=== PATIENT | male | born 1930 | race Caucasian/White ===

== ENCOUNTER 2017-08-22 06:36 | Inpatient (IN) | payer MEDICARE, OTHER ==
[2017-08-22] VITALS (20 sets, daily range): BP systolic 103–145; BP diastolic 57–88; PULSE 64–126; RESP 16–25; Ht 167.6 cm; Wt 81.8 kg
[~2017-08-22] VITALS: Ht 167.6 cm; Wt 81.8 kg
[~2017-08-22 06:36] MED LIST: ALBU8.5H3 INH; AMLO-147 PO; APIX5TAB PO; ASPI81TA16 PO; BEN25 PO; BUDE6HFA INHALATION; FURO20TA3 PO; GABA100C14 PO; LORA0.5T PO; METO-319 PO; OMEG1CAP2 PO; OMEP40CA6 PO; SIMV40TA2 PO; TAMS0.4C2 PO; THP300CCR PO; TIOT18CA INHALATION; ZOLP5TAB7 PO
[2017-08-22] MEDS ORDERED: METOPROLOL 5 MG INJ IV ONE (07:00)
[2017-08-22 07:05] LABS: BASOPHIL # 0.1 10^3/ul (0.0-0.1); BASOPHILS % 0.5 % (0.0-2.0); EOSINOPHILS % 0.3 % (0.0-7.0); HEMATOCRIT 45.5 % (42.0-52.0); HEMOGLOBIN 15.1 g/dl (14.0-18.0); LYMPHOCYTES # 1.3 10^3/ul (0.8-2.9); LYMPHOCYTES % 11.2 % (15.0-51.0); MEAN CORPUSCULAR HEMOGLOBIN 29.1 pg (29.0-33.0); MEAN CORPUSCULAR HGB CONC 33.2 g/dl (32.0-37.0); MEAN CORPUSCULAR VOLUME 87.7 fl (82.0-101.0); MEAN PLATELET VOLUME 10.3 fl (7.4-10.4); MONOCYTE # 0.6 10^3/ul (0.3-0.9); MONOCYTES % 4.8 % (0.0-11.0); NEUTROPHIL # 9.5 10^3/ul (1.6-7.5); NEUTROPHILS % 82.8 % (39.0-77.0); PLATELET COUNT 329 10^3/UL (140-415); RED BLOOD COUNT 5.19 10^6/ul (4.70-6.10); RED CELL DISTRIBUTION WIDTH 12.9 % (11.5-14.5); WHITE BLOOD COUNT 11.5 10^3/ul (4.8-10.8)
--- NOTE | 2017-08-22 07:16 | RADRPT ---
PROCEDURE: CT brain without contrast. CLINICAL INDICATION: Stroke. TECHNIQUE: CT scan of the brain was performed on a multi-detector high-resolution CT scanner. Co ntiguous axial images were obtained from the skull base to the vertex without intravenous contrast. Coronal and sagittal reformatted images were also obtained. Images were reviewed on the PACS works tation. One or more of the following dose reduction techniques were used: - Automated exposure control. - Adjustment of the mA and/or kV according to patient size. - Use of iterative reconstruction technique. Exam CTD/vol = 43.16 mGy. Total exam DLP = 810.25 mGy-cm. COMPARISON: None. FINDINGS: The ventricles and cortical sulci are prominent consistent with mild age related volume loss. There are patchy areas of low attenuation within the periventricular white matter consistent with mild ch ronic ischemic changes secondary to small vessel disease. There is no mass effect or midline shift. There is no intracranial hemorrhage or abnormal extra-axial collection. There are atherosclerotic calcifications within bilateral distal internal carotid arteries. There is a nodule within the left parietal scalp measuring 1.7 x 1.3 cm which could represent a seba ceous cyst. The calvarium is intact. There is no evidence of fracture. Visualized paranasal sinuse s and mastoid air cells are clear. IMPRESSION: No acute intracranial abnormality identified. Mild age related volume loss and chronic ischemic white matter disease. Cerebral atherosclerosis. A call report was made to Dr. Fuentes at 07:13 a.m. .Nael Torres MD, MD Date Time Electronically viewed and signed by .Nael Torres MD, MD on 08/22/2017 07:16 .T/
[2017-08-22 07:22] LABS: CALCIUM 9.3 mg/dl (8.4-10.2); CREATININE 1.22 mg/dl (0.61-1.24); POTASSIUM 3.9 mmol/L (3.5-5.1)
[2017-08-22] MEDS ORDERED: METOPROLOL (XL) 50 MG TAB PO ONE (07:30)
[2017-08-22 07:33] LABS: TROPONIN-I 0.097 ng/ml (0.00-0.12)
--- NOTE | 2017-08-22 08:14 | RADRPT ---
PROCEDURE: XR Chest. CLINICAL INDICATION: Stroke. TECHNIQUE: Single frontal chest x-ray. COMPARISON: 05/07/2016 FINDINGS: There is moderate central congestion. No focal opacification is seen. No pneumothorax or pleural e ffusion is seen. Mild aortic arch atherosclerotic calcifications are present. The heart size is pr ominent. Otherwise, the cardiomediastinal silhouette is unremarkable. Mild bilateral glenohumeral a rthrosis is present, left more than right. IMPRESSION: 1. Moderate central congestion. 2. Mild cardiomegaly and aortic atherosclerosis. RPTAT: JJ .Valentin Loza MD, MD Date Time Electronically viewed and signed by .Valentin Loza MD, on 08/22/2017 08:14 .A/
[2017-08-22] MEDS ORDERED: ONDANSETRON 4 MG INJ IV PRN (08:30)
--- NOTE | 2017-08-22 08:40 | ERA ---
ER Documentation Chief Complaint Date/Time DATE: 08/22/17 TIME: 08:31 Chief Complaint CAME IN VIA EMS DUE TO CHEST PAIN HPI 86-year-old male with a history of atrial fibrillation, CAD status post stent, and possible recent stroke about 2 months ago on Eliquis presenting with ambulance with complaints of chest pain. He states the pain started around 1 AM. It radiates to his left arm and neck. He describes as a pressure-like pain. He denies any associated nausea, vomiting, or diaphoresis but he did look very pale and was dizzy per his daughter. The pain has been constant since 1 AM. When his daughter arrived to his house, she noticed that he had some slurred speech which is new for him. He also complains of subjective left arm heaviness. It is unclear what time his slurred speech started as the patient has not noticed it. ROS All systems reviewed and are negative except as per history of present illness. Medications Home Meds Active Scripts Furosemide* (Furosemide*) 20 Mg Tablet, 20 MG PO DAILY for 30 Days, #60 TAB Prov:LEONEL FOWLER MD 05/07/16 Apixaban* (Eliquis*) 5 Mg Tablet, 5 MG PO BID for 30 Days, TAB Prov:LEONEL FOWLER MD 05/07/16 Reported Medications Budesonide-Formoterol Fumarate* (Symbicort*) 160-4.5 Hfa.aer.ad, 2 PUFF INHALATION BID, #1 EACH 05/02/16 Albuterol Sulfate* (Proair HFA*) 8.5 Gm Hfa.aer.ad, 2 PUFF INH Q6H Y for WHEEZING AND SOB, #1 INHALER 05/02/16 Zolpidem Tartrate* (Zolpidem Tartrate*) 5 Mg Tablet, 5 MG PO QHS Y for INSOMNIA , #30 TAB 05/02/16 Theophylline Anhydrous* (Naif-24*) 300 Mg Cap.sr.24h, 300 MG PO DAILY, CAP 05/02/16 Tamsulosin Hcl* (Tamsulosin Hcl*) 0.4 Mg Cap.er.24h, 0.4 MG PO HS, CAP 05/02/16 Tiotropium [place]* (Spiriva*) 18 Mcg Cap.w.dev, 1 CAP INHALATION DAILY, #30 CAP 6/4/16 Simvastatin* (Zocor*) 40 Mg Tablet, 40 MG PO QHS, #30 TAB 05/02/16 Omeprazole* (Omeprazole*) 40 Mg Capsule.dr, 40 MG PO DAILY, #30 CAP 05/02/16 Metoprolol Succinate* (Toprol XL*) 50 Mg Tab.er.24h, 50 MG PO DAILY, #30 TAB 05/02/16 [place]-3 Acid Ethyl Esters (Lovaza) 1 Gm Capsule, 1 GM PO QID, CAP 05/02/16 Lorazepam* (Lorazepam*) 0.5 Mg Tablet, 0.5 MG PO DAILY Y for ANXIETY, TAB 05/02/16 Gabapentin* (Gabapentin*) 100 Mg Capsule, 100 MG PO DAILY, #90 CAP 05/02/16 Diphenhydramine Hcl* (Benadryl*) 25 Mg Cap, 25 MG PO DAILY Y for ALLERGIC REACTION, CAP 05/02/16 Amlodipine Besylate* (Amlodipine Besylate*) 10 Mg Tablet, 10 MG PO DAILY, #30 TAB 05/02/16 Aspirin (LOW DOSE ASPIRIN EC) 81 Mg Tablet.dr, 81 MG PO DAILY, #30 TAB 05/02/16 Allergies Allergies: Coded Allergies: Penicillins (Verified Allergy, Unknown, hives, 05/02/16) acetaminophen (Verified Allergy, Unknown, 05/02/16) hives, swelling clopidogrel (Verified Allergy, Unknown, 05/02/16) Uncoded Allergies: FLU SHOT (Allergy, Unknown, 05/02/16) hives PMhx/Soc History of Surgery: No Hx Neurological Disorder: No Hx Respiratory Disorders: No Hx Psychiatric Problems: No Hx Miscellaneous Medical Probl: Yes (CAD, stent, atrial fibrillation) Hx Alcohol Use: No Hx Substance Use: No Hx Tobacco Use: No Smoking Status: Former smoker FmHx Family History: No diabetes Physical Exam Vitals Vital Signs Date Time Temp Pulse Resp B/P Pulse Ox O2 Delivery O2 Flow Rate FiO2 08/22/17 07:28 105 18 111/81 95 Room Air 08/22/17 06:45 Nasal Cannula 2 08/22/17 06:39 98.2 112 18 147/119 98 Physical Exam Const: Well-nourished, no significant distress, no diaphoresis, nontoxic Head: Atraumatic Eyes: Normal Conjunctiva ENT: Normal External Ears, Nose and Mouth. Neck: Full range of motion..~ No meningismus. No JVD Resp: Clear to auscultation bilaterally Cardio: Tachycardic, irregular rhythm, no murmurs. 2+ distal pulses, equal bilaterally Abd: Soft, non tender, non distended. Normal bowel sounds Skin: No petechiae or rashes Back: No midline or flank tenderness Ext: No cyanosis, or edema Neur: Awake and alert, somewhat slurred speech, cranial nerves intact, strength and sensations intact in all 4 extremities. Psych: Normal Mood and Affect Result Diagram: 08/22/1765408/22/17654 Results 24 hrs Laboratory Tests Test 08/22/17 06:55 08/22/17 07:18 White Blood Count 11.510^3/ul Red Blood Count 5.1910^6/ul Hemoglobin 15.1g/dl Hematocrit 45.5% Mean Corpuscular Volume 87.7fl Mean Corpuscular Hemoglobin 29.1pg Mean Corpuscular Hemoglobin Concent 33.2g/dl Red Cell Distribution Width 12.9% Platelet Count 78761^3/UL Mean Platelet Volume 10.3fl Neutrophils % 82.8% Lymphocytes % 11.2% Monocytes % 4.8% Eosinophils % 0.3% Basophils % 0.5% Nucleated Red Blood Cells % 0.0/100WBC Neutrophils # 9.510^3/ul Lymphocytes # 1.310^3/ul Monocytes # 0.610^3/ul Eosinophils # 0.010^3/ul Basophils # 0.110^3/ul Nucleated Red Blood Cells # 0.010^3/ul Sodium Level 141mmol/L Potassium Level 3.9mmol/L Chloride Level 107mmol/L Carbon Dioxide Level 25mmol/L Anion Gap 13 Blood Urea Nitrogen 18mg/dl Creatinine 1.22mg/dl Glucose Level 166mg/dl Calcium Level 9.3mg/dl Troponin I 0.097ng/ml Bedside Glucose 145mg/dL Current Medications Medications (Trade) Dose Ordered Sig/Katy Route PRN Reason Start Time Stop Time Status Last Admin Dose Admin Metoprolol Tartrate (Lopressor) 5 mg ONCE ONCE IV 08/22/17 07:00 08/22/17 07:01 DC 08/22/17 07:16 Metoprolol Succinate (Toprol Xl) 50 mg ONCE ONCE PO 08/22/17 07:30 08/22/17 07:31 DC 08/22/17 08:02 Ondansetron HCl (Zofran Inj) 4 mg ER BRIDGE PRN IV NAUSEA AND/OR VOMITING 08/22/17 08:30 08/23/17 08:29 Procedures/MDM EMERGENT LABS AND DIAGNOSTIC STUDIES: Lab Results above were reviewed and interpreted by me. CBC: Mild leukocytosis CMP: No evidence of electrolyte abnormality, renal failure, hypoglycemia, liver failure, or biliary obstruction Troponin within normal limits UA: Pending 12-lead EKG #1 was interpreted by Yaritza Fuentes MD: Atrial fibrillation with RVR at 146 beats per minute Normal axis Normal intervals Minimal ST depressions in V4 through V6, no STEMI 12-lead EKG #2 was interpreted by Yaritza Fuentes MD: Atrial fibrillation with RVR at 112 beats per minute Normal axis Normal intervals ST depressions resolved, no STEMI Radiology Results as interpreted by Radiology below were reviewed by Lalit Fuentes MD: Chest x-ray: IMPRESSION: 1. Moderate central congestion. 2. Mild cardiomegaly and aortic atherosclerosis. .Valentin Loza MD, MD Date Time Electronically viewed and signed by .Valentin Loza MD, MD on 08/22/2017 08:14 CT head shows no acute abnormalities MRI/MRA brain and neck pending Initial Nursing notes reviewed. Previous Medical Records requested via the Electronic Health Record. EMERGENCY DEPARTMENT COURSE / MEDICAL DECISION MAKING: Patient is presenting with A. fib with rapid ventricular response. His blood pressure is however stable. Code stroke was activated for slurred speech but time of onset is not known, so patient is not a TPA candidate. Patient's neurologic symptoms are concerning for acute TIA/stroke, infectious, or metabolic cause and will require inpatient workup and continuous monitoring. Further w/u for will be deferred to the inpatient team. Spoke with the neurologist decoration checker and he recommended an MRI of the brain. He was given metoprolol 5 mg IV with improvement of his heart rate and his symptoms. Aspirin was given in the ambulance. However the patient's chest pain is concerning for a cardiac etiology and will require further workup. His initial troponin is not elevated and his repeat EKG does not show any ST changes. Patient will be admitted to telemetry for further evaluation. Sp Critical Care Time: 35 minutes Treatments/Evaluations: Close monitoring and treatment of unstable vital signs, cardiorespiratory, and neurologic status, while maintaining tight balance of fluid, respiratory, and cardiac interventions. This time includes discussing the case with the patient and the patients family. This time does not include all procedures stated elsewhere in this record. This time also includes reviewing old records, labs and radiological studies. This time includes examining and re-examining the patient. Additionally, this time also includes arranging care with admitting and consulting physicians. TPA Criteria Assessment: Patient is not a TPA candidate because: Last known normal > 3 hours Time Onset Unkown Accepting Care Team: Current data and ongoing care discussed. Time: Time of admission Primary Provider: Jayden Consulting: Teleneurologist Dr. Guadarrama Outstanding Data: MRI/MRA Brain Departure Diagnosis: Primary Impression: Atrial fibrillation with RVR Additional Impressions: Chest pain Qualified Code: R07.9 - Chest pain, unspecified type Slurred speech Condition: Serious GISELA FUENTES MD Aug 22, 2017 08:40
[2017-08-22] MEDS ORDERED: MIDAZOLAM 1 MG/ML 2 ML INJ ONE (08:48)
[2017-08-22] MEDS ORDERED: MIDAZOLAM 1 MG/ML 2 ML INJ IV ONE (09:00)
--- NOTE | 2017-08-22 10:56 | RADRPT ---
PROCEDURE: MR cerebral angiogram without intravenous contrast CLINICAL INDICATION: Slurred speech. Stroke. COMPARISON: CT from 08/22/2017. TECHNIQUE: MR angiogram of the head using 3D [id number]. Multiplanar reconstructions were obtai fran. FINDINGS: Limitations: Motion degrades image quality. Carotid arteries: No flow-limiting stenosis. Anterior cerebral arteries: No flow-limiting stenosis. Middle cerebral arteries: No flow-limiting stenosis. Posterior cerebral arteries: No flow-limiting stenosis. Anterior communicating artery: No flow-limiting stenosis. Posterior communicating arteries: Diminutive are absent.. Basilar artery: No flow-limiting stenosis. Vertebral arteries: No flow-limiting stenosis. IMPRESSION: Motion degrades examination without gross flow-limiting stenosis. RPTAT: PP Physician Ronaldo Date Time Electronically viewed and signed by Physician Ronaldo on 08/22/2017 10:55 LG/
--- NOTE | 2017-08-22 10:58 | RADRPT ---
PROCEDURE: MR Brain without intravenous contrast CLINICAL INDICATION: Slurred speech. Stroke COMPARISON: CT from 08/22/2017. TECHNIQUE: Multiplanar multi-sequence images of the brain were obtained. Images acquired on a 3.0 T esla magnet. FINDINGS: Parenchyma: No acute hemorrhage, infarction, or mass. Moderate amount of periventricular and subcort ical white matter FLAIR hyperintensity, a nonspecific finding often associated with chronic microang iopathy. Ventricles: Mild generalized volume with proportionate ex vacuo ventricular dilation. . Extra-axial spaces: No herniation or midline shift. Orbits: Bilateral lens replacements. Major intracranial flow voids: Preserved. Paranasal sinuses: Mild paranasal sinus mucosal thickening. Mastoids and middle ears: Clear. Bones: Normal. Extracranial soft tissues: 17 x 12 mm subdural rounded well circumscribed lesion in the left subocci pital scalp which may represent an epidermal pilonidal inclusion cyst. Additional comment: None. IMPRESSION: 1. No acute hemorrhage or infarction. 2. Chronic senescent findings characterized by volume loss and white matter changes. RPTAT: PP Physician Ronaldo Date Time Electronically viewed and signed by Physician Ronaldo on 08/22/2017 10:58 LG/
--- NOTE | 2017-08-22 11:02 | RADRPT ---
PROCEDURE: MR neck angiogram without contrast CLINICAL INDICATION: Slurred speech. Stroke. COMPARISON: None relevant listed. TECHNIQUE: Multiplanar multi-sequence angiogram of the neck was performed using 2-D time of flight technique. The extracranial arterial circulation was evaluated using a time resolved 3-D time of fli ght technique. Source images, maximum intensity projections, and sub-volume maximum intensity projec tion images were all reviewed. All stenosis measurements were made using NASCET methodology. FINDINGS: Visualized aorta and the great vessel origins: No flow-limiting stenosis. Right common carotid artery: No flow-limiting stenosis. Right internal carotid artery: Mild 25-30% narrowing of the internal carotid artery at its origin. Right external carotid artery: No flow-limiting stenosis. Left common carotid artery: No flow-limiting stenosis. Left internal carotid artery: Mild 25-30% narrowing of the internal carotid artery at its origin. Left external carotid artery: No flow-limiting stenosis. Vertebral arteries: The left vertebral artery arises directly from the aortic arch No flow-limiting stenosis. Vertebral artery dominance: Codominant. Visualized intracranial circulation: No flow-limiting stenosis. Additional comment: None. IMPRESSION: Mild 25-30% narrowing of the internal carotid arteries at their origins. RPTAT: PP Physician Ronaldo Date Time Electronically viewed and signed by Physician Ronaldo on 08/22/2017 11:02 /
[2017-08-22] MEDS ORDERED: LORAZEPAM 0.5 MG TAB PO PRN (11:30)
[2017-08-22] MEDS ORDERED: APIXABAN 5 MG TABLET PO SCH (11:30)
[2017-08-22] MEDS ORDERED: DIPHENHYDRAMINE 25 MG CAP PO PRN (11:30)
[2017-08-22] MEDS ORDERED: NACL 0.9% 3 ML SYG IV SCH (11:30)
[2017-08-22] MEDS: FUROSEMIDE 40 MG INJ IV SCH ×2 (11:31→16:51)
[2017-08-22] MEDS ORDERED: ALBUTEROL HFA 8 GM INHALER INH PRN (12:00)
[2017-08-22 13:25] LABS: INR 1.26; PROTIME 15.9 Sec (12.2-14.2); PT RATIO 1.2
[2017-08-22 13:26] LABS: PARTIAL THROMBOPLASTIN TIME 39.2 Sec (25.0-35.0)
[2017-08-22 13:48] LABS: CK-MB 7.26 ng/ml (0.0-2.4); TROPONIN-I 1.87 ng/ml (0.00-0.12)
--- NOTE | 2017-08-22 14:33 | HP ---
Date/Time of Note Date/Time of Note DATE: 08/22/17 TIME: 14:18 Assessment/Plan VTE Prophylaxis VTE Prophylaxis Intervention: other Lines/Catheters IV Catheter Type (from Nrs): Peripheral IV Assessment/Plan Chief Complaint/Hosp Course 86 yo male with h/o CAD remote stent, permanent A Fib on AC, BPH, OA, COPD who presents with A Fib and RVR and decompenstated acute diastolic CHF exacerbation Acute diastolic CHF exacerbation: - Diurese with IV lasix 40 BID to euvolemia NSTEMI: - Suspect this is type II in setting of RVR and CHF - Trend troponin - Continue aspirin and AC w NOAC A Fib w RVR: - Titrate metoprolol to control rate < 100 - Rate will improve as patient becomes euvolemic - Continue Xarelto for AC COPD: - Stable, continue home meds Hypertension: - Continue amlodipine Discharge when euvolemic Problems: HPI/ROS Admit Date/Time Admit Date/Time Aug 22, 2017 at 08:22 Hx of Present Illness 86 yo male with h/o permanent A Fib on AC, CAD BPH, OA b/l knees, COPD who presented today with SOB, palpitations accompanied by dizziness and headach this AM. ROS is hoffman positive, a bit difficult to ascertain exactly what brought him to ED, but clearly had a transient episode of SOB and palpitations thsi morning that seems to have resolved. In ED, found to be in A Fib w RVR, given IV and PO metoprolol. Seen by me after these events, feels well. No symptoms currently. Endorses chronic SOB and PND, has very bothersome deviated septum he focuses on. Also has a unilateral swollen testicle and RLE swelling. PMH/Family/Social Past Medical History Medical History: congestive heart failure Past Surgical History Past Surgical Hx: angioplasty Social History Alcohol Use: none Smoking Status: Former smoker Drug Use: none Exam/Review of Systems Vital Signs Vitals Vital Signs Date Time Temp Pulse Resp B/P Pulse Ox O2 Delivery O2 Flow Rate FiO2 08/22/17 12:10 126 08/22/17 08:52 21 123/82 95 Room Air 08/22/17 06:45 2 08/22/17 06:39 98.2 Exam Exam Comfortable, well appearing NAD, Aox3 Pleasant, approrpiate Irreg irreg, tachy, no murmur. +++ JVD Lungs are clear b/l Abdomen is soft nt nt Ext no pitting edema, R calf perhaps a bit more swollen than left Labs Result Diagram: 08/22/1765408/22/17654 Medications Medications Current Medications Albuterol (Ventolin Hfa) 2 puff Q6H PRN INH WHEEZING AND SOB; Start 08/22/17 at 12:00 Amlodipine Besylate (Norvasc) 10 mg DAILY PO ; Start 08/23/17 at 09:00 Apixaban (Eliquis) 5 mg BID PO Last administered on 08/22/17t 11:31; Admin Dose 5 MG; Start 08/22/17 at 11:30 Aspirin (Halfprin) 81 mg DAILY PO ; Start 08/23/17 at 09:00 Diphenhydramine HCl (Benadryl) 25 mg DAILY PRN PO ALLERGIC REACTION; Start at 11:30 Gabapentin (Neurontin) 100 mg DAILY PO ; Start 08/23/17 at 09:00 Lorazepam (Ativan) 0.5 mg DAILY PRN PO ANXIETY; Start 08/22/17 at 11:30 Metoprolol Succinate (Toprol Xl) 50 mg DAILY PO ; Start 08/23/17 at 09:00 Tamsulosin HCl (Flomax) 0.4 mg HS PO ; Start 08/22/17 at 21:00 Zolpidem Tartrate (Ambien) 5 mg QHS PRN PO INSOMNIA; Start 08/22/17 at 11:30 KAE WILSON MD Aug 22, 2017 14:32
[2017-08-22] MEDS ORDERED: METOPROLOL 25 MG TAB PO ONE (15:00)
[2017-08-22] MEDS: NITROGLYCERIN (SL) 0.4 MG TAB SL PRN ×2 (16:49→17:30)
--- NOTE | 2017-08-22 17:52 | CONS ---
DATE OF ADMISSION: 08/22/2017 DATE OF CONSULTATION: 08/22/2017 REFERRING PHYSICIAN: Alice Nieves MD HISTORY OF PRESENT ILLNESS: Dr. Nieves, thank you for asking me to evaluate your patient. The patient is an 86-year-old [place] male, who was admitted to [facility] with complaints of dizziness and rapid heart beat. The patient was therefore admitted to the hospital with a diagnosis of AFib with RVR and also with decompensated acute diastolic CHF exacerbation. On further questioning, patient denies any chest pain, although the history is limited because of the language barrier. He did have some shortness of breath and palpitation along with some dizziness and headache. His symptoms of shortness of breath and palpitations had resolved by the time he came to the emergency room. As far as his past medical history is concerned, he history of angioplasty and stenting in the remote past and he also has history of CHF in the past. SOCIAL HISTORY: As per the records, he does not drink, he is a former smoker, does not use any drugs. FAMILY HISTORY: Not available. REVIEW OF SYSTEMS: Otherwise not available because of the language barrier. PAST MEDICAL HISTORY: History of COPD, hypertension, and atrial fibrillation in the past. PHYSICAL EXAMINATION: GENERAL: He is conscious, alert, oriented, and appears to be in no acute distress. VITAL SIGNS: Reveal a heart rate of 60 to 120, other than that his blood pressure is 145/85, which is normal for his age, and he is afebrile with respiratory rate of 20. HEENT: Head reveals normocephaly. Face, there is no facial droop. NECK: JVP is not raised and carotid pulses were normal upstrokes without any bruits or murmurs. No thyromegaly or lymphadenopathy. CHEST: Bilaterally symmetrical. Nontender. HEART: Heart rate, the PMI is localized in the 4th intercostal space 1 cm to midclavicular line. S1, S2, regular, and a 1 over 6 systolic murmur is heard at the apex. No gallop, rub, or thrill appreciated. LUNGS: Clear lung sam to percussion and auscultation. No intercostal retraction is seen. ABDOMEN: Soft, nontender belly without any organomegaly. Bowel sounds present. No abdominal aorta palpable. No abdominal bruits are heard. EXTREMITIES: Good femoral and good pedal pulses. No femoral bruits. No pedal edema. No clubbing, no cyanosis. LABORATORY: So far with white count of 11.5 with a normal hemoglobin and normal platelet count. His chemistries were normal sodium, potassium, BUN and creatinine. His troponin is elevated at 1.87 at 12:15. The 1st troponin was 0.097. The EKG done this morning at 6:42 hours shows atrial fibrillation with fast ventricular response with septal infarct of undetermined age. Repeat EKG at 7:33 again showed the same findings with possible old anterior wall myocardial infarction. IMPRESSION: The patient is an 86-year-old male with a past medical history of myocardial infarction, coronary stenting, hypertension, and atrial fibrillation, who was admitted now because of his complaint of shortness of breath and palpitations this morning for unknown duration. In view of the history and physical findings, differential diagnosis at this stage includes, 1. Incomplete database because of language barrier. 2. Atrial fibrillation with controlled to fast ventricular response. 3. Shortness of breath, which may be because of congestive heart failure, it may be a or may be just secondary ejection fraction. 4. Palpitations, which may be because of his atrial fibrillation with fast ventricular response. 5. History of coronary stenting. 6. Elevated troponin suggestive of non-ST elevation myocardial infarction with history of myocardial infarction. 7. 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 8. Systolic murmur. RECOMMENDATIONS: 1. At this stage include that the patient should be in a monitored bed, which you have already done. 2. Will obtain a follow up EKG and a troponin in the morning. 3. Will also get echocardiogram Doppler study to assess the left ventricular function and to assess the valvular status. 4. Will continue with the amlodipine, aspirin, and metoprolol along with the Eliquis that he is already on, and will make further recommendations. Will also use nitroglycerin on p.r.n. basis for chest pain or shortness of breath, and will get a follow up chest x-ray in the morning. Will also get a BNP and BMP in the morning, and will continue with the IV Lasix for now, continue with Eliquis for now, and would recommend not switching metoprolol because he also has history of COPD and therefore needs a selective beta-pamela. Prognosis at this stage is fair to guarded. Thank you once again, Dr. Nieves, for this kind referral. It is a pleasure working with you. Dictated By: Dominik Jenkins MD /[email or web address] /Document#: [id number]
[2017-08-22 19:35] LABS: CK-MB 6.8 ng/ml (0.0-2.4); TROPONIN-I 1.72 ng/ml (0.00-0.12)
[2017-08-22] MEDS: TAMSULOSIN (SR) 0.4 MG CAP PO SCH (21:29)
[2017-08-22] MEDS: ENOXAPARIN 100 MG/ML SYG SC SCH (21:33)
[2017-08-22] MEDS ORDERED: NITROGLYCERIN 50 MG/D5W (PMX) 250 ML IV PRN (23:00)
[2017-08-22] MEDS: ZOLPIDEM 5 MG TAB PO PRN (23:54)
[2017-08-23] VITALS (28 sets, daily range): BP systolic 86–145; BP diastolic 58–107; PULSE 53–121; RESP 10–25
[2017-08-23 05:24] LABS: BASOPHIL # 0.1 10^3/ul (0.0-0.1); BASOPHILS % 1.1 % (0.0-2.0); EOSINOPHILS # 0.2 10^3/ul (0.0-0.5); EOSINOPHILS % 1.4 % (0.0-7.0); HEMATOCRIT 47.5 % (42.0-52.0); HEMOGLOBIN 15.6 g/dl (14.0-18.0); LYMPHOCYTES % 28.4 % (15.0-51.0); MEAN CORPUSCULAR HEMOGLOBIN 28.8 pg (29.0-33.0); MEAN CORPUSCULAR HGB CONC 32.8 g/dl (32.0-37.0); MEAN CORPUSCULAR VOLUME 87.8 fl (82.0-101.0); MEAN PLATELET VOLUME 10.4 fl (7.4-10.4); MONOCYTE # 0.9 10^3/ul (0.3-0.9); MONOCYTES % 8.1 % (0.0-11.0); NEUTROPHIL # 6.3 10^3/ul (1.6-7.5); NEUTROPHILS % 60.5 % (39.0-77.0); PLATELET COUNT 317 10^3/UL (140-415); RED BLOOD COUNT 5.41 10^6/ul (4.70-6.10); WHITE BLOOD COUNT 10.5 10^3/ul (4.8-10.8)
[2017-08-23] MEDS: FUROSEMIDE 40 MG INJ IV SCH ×2 (06:06→18:43)
[2017-08-23 06:14] LABS: ALBUMIN 3.8 g/dl (3.3-4.9); ALBUMIN/GLOBULIN RATIO 0.97; BILIRUBIN,INDIRECT 1.4 mg/dl (0-1.1); BILIRUBIN,TOTAL 1.4 mg/dl (0.2-1.3); CALCIUM 9.3 mg/dl (8.4-10.2); CREATININE 1.47 mg/dl (0.61-1.24); MAGNESIUM 1.8 mg/dl (1.7-2.5); POTASSIUM 3.5 mmol/L (3.5-5.1); TOTAL PROTEIN 7.7 g/dl (6.1-8.1)
[2017-08-23 06:36] LABS: THYROID STIMULATING HORMONE 3.86 MIU/L (0.465-4.680)
--- NOTE | 2017-08-23 08:42 | RADRPT ---
PROCEDURE: XR Chest 1 View. CLINICAL INDICATION: Shortness of breath. TECHNIQUE: AP view of the chest was obtained. COMPARISON: Yesterday FINDINGS: The cardiomediastinal silhouette is within normal limits. Mild central pulmonary vascular congestion is unchanged. Scattered atelectasis is seen in the bilateral lower lobes. No consolidations are juana ntified. No pneumothorax is seen. The osseous structures are unchanged. IMPRESSION: Stable mild central pulmonary vascular congestion. Scattered atelectasis in the bilateral lower lobes. RPTAT: AA .Colten Faustin MD, Date Time Electronically viewed and signed by .Colten Faustin MD, on 08/23/2017 08:42 .P/
[2017-08-23] MEDS ORDERED: AMLODIPINE 10 MG TAB PO SCH (09:00)
[2017-08-23] MEDS ORDERED: METOPROLOL (XL) 100 MG TAB PO SCH (09:00)
[2017-08-23] MEDS ORDERED: METOPROLOL (XL) 50 MG TAB PO SCH (09:00)
[2017-08-23] MEDS: GABAPENTIN 100 MG CAP PO SCH (09:57)
[2017-08-23] MEDS: ASPIRIN (EC) 81 MG TAB PO SCH (09:57)
[2017-08-23] MEDS: ENOXAPARIN 100 MG/ML SYG SC SCH ×2 (10:00→20:43)
--- NOTE | 2017-08-23 10:13 | CONS ---
Date/Time of Note Date/Time of Note DATE: 08/23/17 TIME: 10:02 Assessment/Plan Assessment/Plan Chief Complaint/Hosp Course IMP: 1.Nstemi-likely type 2 in the setting of AF with RVR-now downtrendingf 2.AF with RVRV-still mild tachycardia 3.HTN 4.sob 5.CHF 6. REnal failure Recc: -Tele -serial ecg's -Continue lovenox/BB -decrase dose of norvasc and follow bp clsoely in favor of starting hydralazine for afterload reduction in lieu of ACEI given renal afilure -dose of digoxin to improve HR control -Contnue asa -will f/u echo -Contnue lasix diuresis and follow creatnine closely Problems: Consultation Date/Type/Reason Admit Date/Time Aug 22, 2017 at 08:22 Initial Consult Date 08/23/2017 Type of Consultation: cardiology Reason for Consultation AF Referring Provider: BLANK RUTH MD Exam/Review of Systems Vital Signs Vitals Vital Signs Date Time Temp Pulse Resp B/P Pulse Ox O2 Delivery O2 Flow Rate FiO2 08/23/17 08:00 114 08/23/17 06:00 18 127/92 95 08/23/17 04:00 97.5 08/22/17 10:30 Room Air 08/22/17 06:45 2 Intake and Output 08/22/17 08/22/17 08/23/17 15:00 23:00 07:00 Intake Total 600 ml 200 ml Output Total 350 ml 650 ml Balance 250 ml -450 ml Exam Review of Systems: CONSTITUTIONAL: No fevers, chills. PULMONARY: No sob CARDIOVASCULAR: No chest pain/palpitations GASTROINTESTINAL: No nausea/vomiting. GENITOURINARY: No hematuria/dysuria. MUSCULOSKELETAL: No myagias/arthalgias. PSYCHIATRIC: The patient denies depression. NEUROLOGIC: mild confusion Constitutional: alert Psych: no complaints Head: normocephalic ENMT: mucosa pink and moist Neck: jvd, supple Respiratory: diminished breath sounds (at bases/B) Cardiovascular: irregular rhythm Gastrointestinal: non-tender, soft Musculoskeletal: muscle weakness (generalized) Extremities: edema (none) Neurological: other (No focal deficits) Results Result Diagram: 08/23/17 0428 08/23/17427 Results 24 hrs Laboratory Tests Test 08/22/17 12:15 08/22/17 18:38 08/23/17 04:28 Prothrombin Time 15.9 H Prothrombin Time Ratio 1.2 INR International Normalized Ratio 1.26 Activated Partial Thromboplast Time 39.2 H Creatine Kinase 88 105 Creatine Kinase Index 8.3 6.5 Creatinine Kinase MB (Mass) 7.26 H 6.80 H Troponin I 1.870 *H 1.720 *H 0.877 *H White Blood Count 10.5 Red Blood Count 5.41 Hemoglobin 15.6 Hematocrit 47.5 Mean Corpuscular Volume 87.8 Mean Corpuscular Hemoglobin 28.8 L Mean Corpuscular Hemoglobin Concent 32.8 Red Cell Distribution Width 13.0 Platelet Count 317 Mean Platelet Volume 10.4 Neutrophils % 60.5 Lymphocytes % 28.4 Monocytes % 8.1 Eosinophils % 1.4 Basophils % 1.1 Nucleated Red Blood Cells % 0.0 Neutrophils # 6.3 Lymphocytes # 3.0 H Monocytes # 0.9 Eosinophils # 0.2 Basophils # 0.1 Nucleated Red Blood Cells # 0.0 Sodium Level 140 Potassium Level 3.5 Chloride Level 101 Carbon Dioxide Level 30 Anion Gap 13 Blood Urea Nitrogen 20 Creatinine 1.47 H Glucose Level 102 # Calcium Level 9.3 Magnesium Level 1.8 Total Bilirubin 1.4 H Direct Bilirubin 0.00 Indirect Bilirubin 1.4 H Aspartate Amino Transf (AST/SGOT) 29 Alanine Aminotransferase (ALT/SGPT) 31 Alkaline Phosphatase 64 B-Type Natriuretic Peptide 6860 H Total Protein 7.7 Albumin 3.8 Globulin 3.90 H Albumin/Globulin Ratio 0.97 Thyroid Stimulating Hormone (TSH) 3.860 Medications Medications Current Medications Albuterol (Ventolin Hfa) 2 puff Q6H PRN INH WHEEZING AND SOB; Start 08/22/17 at 12:00 Amlodipine Besylate (Norvasc) 10 mg DAILY PO Last administered on 08/23/17 09: 58; Admin Dose 10 MG; Start 08/23/17 at 09:00 Aspirin (Halfprin) 81 mg DAILY PO Last administered on 08/23/17 09:57; Admin Dose 81 MG; Start 08/23/17 at 09:00 Diphenhydramine HCl (Benadryl) 25 mg DAILY PRN PO ALLERGIC REACTION; Start at 11:30 Gabapentin (Neurontin) 100 mg DAILY PO Last administered on 08/23/17 09:57; Admin Dose 100 MG; Start 08/23/17 at 09:00 Lorazepam (Ativan) 0.5 mg DAILY PRN PO ANXIETY Last administered on 08/23/17 00:53; Admin Dose 0.5 MG; Start 08/22/17 at 11:30 Tamsulosin HCl (Flomax) 0.4 mg HS PO Last administered on 08/22/17 21:29; Admin Dose 0.4 MG; Start 08/22/17 at 21:00 Zolpidem Tartrate (Ambien) 5 mg QHS PRN PO INSOMNIA Last administered on 23:54; Admin Dose 5 MG; Start 08/22/17 at 11:30 Metoprolol Succinate (Toprol Xl) 100 mg DAILY PO Last administered on 09:58; Admin Dose 100 MG; Start 08/23/17 at 09:00 Nitroglycerin (Nitroglycerin (Sl Tab) 0.4 Mg) 1 tab Q5M PRN SL ANGINA Last administered on 08/22/17 17:30; Admin Dose 1 TAB; Start 08/22/17 at 16:30 Enoxaparin Sodium 80 mg 80 mg Q12 SC Last administered on 08/23/17 10:00; Admin Dose 80 MG; Start 08/22/17 at 21:00 Nitroglycerin/ Dextrose (Nitroglycerin 50 Mg/D5W (Pmx)) 250 ml @ 5 mls/hr PRN PRN IV chestpains; Start 08/22/17 at 23:00 VIV PHILLIP Aug 23, 2017 10:13
--- NOTE | 2017-08-23 10:40 | PN ---
Date/Time of Note Date/Time of Note DATE: 08/23/17 TIME: 10:31 Assessment/Plan VTE Prophylaxis VTE Prophylaxis Intervention: LMWH Lines/Catheters IV Catheter Type (from Nrs): Saline Lock Urinary Cath still in place: No Assessment/Plan Chief Complaint/Hosp Course A/P: 86 yo male with h/o CAD remote stent, permanent A Fib on AC, BPH, OA, COPD who presents with A Fib and RVR and decompensated acute diastolic CHF exacerbation Acute diastolic CHF exacerbation: BNP = [id number] range. - continue IV lasix 40 BID - f/u ECHO results, consider holding bblocker for acute CHF NSTEMI: Suspect this is type II in setting of RVR and CHF - Trend troponin, f/u CV rec's - Continue aspirin and AC w lovenox for now. A Fib w RVR: slowly improving, but still with occasional RVR - monitor HRate (hopefully will improve as patient becomes euvolemic) - on LMWH for now (takes Eliquis at home, holding for now, resume when d/c'ed home) COPD: slowly improving - Stable, continue home meds, add Duoneb's Q4 hrs prn Hypertension: - Continue amlodipine, consider adding diltiazem as well, holding bblocker for now Critical care time spent with pt care today = 50 min. Problems: Subjective 24 Hr Interval Summary Free Text/Dictation Pt seen by CV team. Still with some occasional elevated HR. Exam/Review of Systems Vital Signs Vitals Vital Signs Date Time Temp Pulse Resp B/P Pulse Ox O2 Delivery O2 Flow Rate FiO2 08/23/17 08:00 114 08/23/17 06:00 18 127/92 95 08/23/17 04:00 97.5 08/22/17 10:30 Room Air 08/22/17 06:45 2 Intake and Output 08/22/17 08/22/17 08/23/17 15:00 23:00 07:00 Intake Total 600 ml 200 ml Output Total 350 ml 650 ml Balance 250 ml -450 ml Exam lying in bed, well appearing NAD, Aox3 PERRL, EOMI Irreg irreg, tachy, no murmur Lungs are clear b/l Abdomen is soft nt nt Ext no pitting edema, R calf perhaps a bit more swollen than left Results Result Diagram: 08/23/17 0428 08/23/17 0428 Results 24 hrs Laboratory Tests Test 08/22/17 12:15 08/22/17 18:38 08/23/17 04:28 Prothrombin Time 15.9 H Prothrombin Time Ratio 1.2 INR International Normalized Ratio 1.26 Activated Partial Thromboplast Time 39.2 H Creatine Kinase 88 105 Creatine Kinase Index 8.3 6.5 Creatinine Kinase MB (Mass) 7.26 H 6.80 H Troponin I 1.870 *H 1.720 *H 0.877 *H White Blood Count 10.5 Red Blood Count 5.41 Hemoglobin 15.6 Hematocrit 47.5 Mean Corpuscular Volume 87.8 Mean Corpuscular Hemoglobin 28.8 L Mean Corpuscular Hemoglobin Concent 32.8 Red Cell Distribution Width 13.0 Platelet Count 317 Mean Platelet Volume 10.4 Neutrophils % 60.5 Lymphocytes % 28.4 Monocytes % 8.1 Eosinophils % 1.4 Basophils % 1.1 Nucleated Red Blood Cells % 0.0 Neutrophils # 6.3 Lymphocytes # 3.0 H Monocytes # 0.9 Eosinophils # 0.2 Basophils # 0.1 Nucleated Red Blood Cells # 0.0 Sodium Level 140 Potassium Level 3.5 Chloride Level 101 Carbon Dioxide Level 30 Anion Gap 13 Blood Urea Nitrogen 20 Creatinine 1.47 H Glucose Level 102 # Calcium Level 9.3 Magnesium Level 1.8 Total Bilirubin 1.4 H Direct Bilirubin 0.00 Indirect Bilirubin 1.4 H Aspartate Amino Transf (AST/SGOT) 29 Alanine Aminotransferase (ALT/SGPT) 31 Alkaline Phosphatase 64 B-Type Natriuretic Peptide 6860 H Total Protein 7.7 Albumin 3.8 Globulin 3.90 H Albumin/Globulin Ratio 0.97 Thyroid Stimulating Hormone (TSH) 3.860 Medications Medications Current Medications Albuterol (Ventolin Hfa) 2 puff Q6H PRN INH WHEEZING AND SOB; Start 08/22/17 at 12:00 Aspirin (Halfprin) 81 mg DAILY PO Last administered on 08/23/17 09:57; Admin Dose 81 MG; Start 08/23/17 at 09:00 Diphenhydramine HCl (Benadryl) 25 mg DAILY PRN PO ALLERGIC REACTION; Start at 11:30 Gabapentin (Neurontin) 100 mg DAILY PO Last administered on 08/23/17 09:57; Admin Dose 100 MG; Start 08/23/17 at 09:00 Lorazepam (Ativan) 0.5 mg DAILY PRN PO ANXIETY Last administered on 08/23/17 00:53; Admin Dose 0.5 MG; Start 08/22/17 at 11:30 Tamsulosin HCl (Flomax) 0.4 mg HS PO Last administered on 08/22/17 21:29; Admin Dose 0.4 MG; Start 08/22/17 at 21:00 Zolpidem Tartrate (Ambien) 5 mg QHS PRN PO INSOMNIA Last administered on 23:54; Admin Dose 5 MG; Start 08/22/17 at 11:30 Metoprolol Succinate (Toprol Xl) 100 mg DAILY PO Last administered on 09:58; Admin Dose 100 MG; Start 08/23/17 at 09:00 Nitroglycerin (Nitroglycerin (Sl Tab) 0.4 Mg) 1 tab Q5M PRN SL ANGINA Last administered on 08/22/17 17:30; Admin Dose 1 TAB; Start 08/22/17 at 16:30 Enoxaparin Sodium 80 mg 80 mg Q12 SC Last administered on 08/23/17 10:00; Admin Dose 80 MG; Start 08/22/17 at 21:00 Nitroglycerin/ Dextrose (Nitroglycerin 50 Mg/D5W (Pmx)) 250 ml @ 5 mls/hr PRN PRN IV chestpains; Start 08/22/17 at 23:00 Amlodipine Besylate (Norvasc) 5 mg DAILY PO ; Start 08/24/17 at 09:00; Status UNV Digoxin (Digoxin) 250 mcg Q6 IV ; Start 08/23/17 at 12:00; Status UNV LESLEY CORREA Aug 23, 2017 10:40
[2017-08-23] MEDS ORDERED: ALBUTEROL/IPRATROPIUM (NEB) 3 ML AMP HHN PRN (11:00)
[2017-08-23] MEDS: TIOTROPIUM 18 MCG CAPSULE INHA DEV INH SCH (12:00)
[2017-08-23] MEDS: DIGOXIN 500 MCG INJ IV SCH ×2 (12:55→18:00)
--- NOTE | 2017-08-23 15:29 | RADRPT ---
Echocardiogram Report Patient Name: GAVIN STARR Gender: Male Date: 1930 Study Date: 23-Aug-2017 Home Care Associate: Renetta [facility] Location: [address] Ref. Physician: KAE WILSON Quality: Technically Difficult Study Procedures: Transthoracic echocardiogram with complete 2D, M-Mode, and doppler examination. Indications: Congential Heart Disease. 2D/M Mode Doppler Measurement Value Normal Ranges Measurement Value Normal Ranges LVIDd 2D 4.8 3.5 - 5.6 cm AV Peak [place] 2.5 m/sec LVIDs 2D 3.5 2.1 - 4.1 cm AV Peak PG 25.0 mmHg FS 2D 26.6 % LVOT Peak [place] 1.6 m/sec LVPWd 2D 1.3 0.6 - 1.1 cm LVOT Peak PG 11.0 mmHg IVSd 2D 1.3 0.6 - 1.1 cm MV E Peak [place] 0.9 m/sec IVS/LVPW 2D 1.0 MV Decel Time 113 msec AoR Diam 2D 2.6 2.0 - 3.7 cm TR Peak [place] 2.3 m/sec LA/Ao 2D 2 0 - 1 TR Peak PG 22.0 mmHg EDV 2D 109.0 cm3 RVSP 25.0 mmHg ESV 2D 43.2 cm3 LA Dimen 2D 4.5 2.3 - 4.0 cm Findings Left Ventricle: Hyperdynamic left ventricular systolic function. Normal left ventricular cavity size. Mild concentric left ventricular hypertrophy. Ejection fraction is visually estimated at 70 %. Abnormal Diastolic Function. Right Ventricle: Normal right ventricular size. Normal right ventricular systolic function. Left Atrium: There is mild enlargement of left atrium. Right Atrium: The right atrium is normal in size. Mitral Valve: Mild mitral leaflet calcification. Mild mitral annular calcification. Trace mitral regurgitation. Aortic Valve: Aortic valve Max velocity 2.50 m/sec. Max PG 25.00 mmHg. Aortic sclerosis without stenosis. Trace aortic valve regurgitation. Tricuspid Valve: Normal appearance of the tricuspid valve. Estimated peak PA systolic pressure 25 mmHg. There is mild tricuspid regurgitation. Pulmonic Valve: Pulmonic valve not well visualized. There is trace pulmonic regurgitation. Pericardium: Small pericardial effusion. Aorta: Normal aortic root. IVC: Normal size and normal respiratory collapse consistent with normal right atrial pressure. Conclusions 1.Hyperdynamic or upper normal left ventricular systolic function and regional wall motion. Normal left ventricular cavity size. Mild concentric left ventricular hypertrophy. Ejection fraction is visually estimated at 65-70 %. Abnormal Diastolic Function (?). 2.Normal right ventricular size. Normal right ventricular systolic function. (The free RV wall is excessively bright of unclear cause or significance. It contracts normally). 3.Mild mitral leaflet calcification. Mild mitral annular calcification. Trace mitral regurgitation. 4.Normal appearance of the tricuspid valve. Estimated peak PA systolic pressure is normal, 25 mmHg. There is mild tricuspid regurgitation. 5.Small pericardial effusion around the right ventricular free wall. 6.Patient is in atrial fibrillation. Electronically Signed By: Nnamdi Russo 23-Aug-2017 15:28:39 -0700 Patient Name: GAVIN STARR Study Date: 23-Aug-2017 [id number]
[2017-08-23] MEDS: TAMSULOSIN (SR) 0.4 MG CAP PO SCH (20:40)
[2017-08-24] VITALS (12 sets, daily range): BP systolic 115–130; BP diastolic 58–75; PULSE 50–66; RESP 20
[2017-08-24] MEDS: ZOLPIDEM 5 MG TAB PO PRN ×2 (00:20→23:13)
[2017-08-24 06:19] LABS: BASOPHIL # 0.1 10^3/ul (0.0-0.1); BASOPHILS % 1.3 % (0.0-2.0); EOSINOPHILS # 0.2 10^3/ul (0.0-0.5); HEMATOCRIT 44.6 % (42.0-52.0); HEMOGLOBIN 14.5 g/dl (14.0-18.0); LYMPHOCYTES # 2.2 10^3/ul (0.8-2.9); LYMPHOCYTES % 28.1 % (15.0-51.0); MEAN CORPUSCULAR HEMOGLOBIN 28.3 pg (29.0-33.0); MEAN CORPUSCULAR HGB CONC 32.5 g/dl (32.0-37.0); MEAN CORPUSCULAR VOLUME 87.1 fl (82.0-101.0); MEAN PLATELET VOLUME 10.4 fl (7.4-10.4); MONOCYTE # 0.7 10^3/ul (0.3-0.9); MONOCYTES % 8.7 % (0.0-11.0); NEUTROPHIL # 4.7 10^3/ul (1.6-7.5); NEUTROPHILS % 59.5 % (39.0-77.0); PLATELET COUNT 291 10^3/UL (140-415); RED BLOOD COUNT 5.12 10^6/ul (4.70-6.10); RED CELL DISTRIBUTION WIDTH 13.2 % (11.5-14.5); WHITE BLOOD COUNT 7.9 10^3/ul (4.8-10.8)
[2017-08-24] MEDS: FUROSEMIDE 40 MG INJ IV SCH (06:35)
[2017-08-24 06:40] LABS: MAGNESIUM 1.7 mg/dl (1.7-2.5); PHOSPHORUS 4.4 mg/dl (2.5-4.9)
[2017-08-24 06:42] LABS: CALCIUM 8.5 mg/dl (8.4-10.2); CREATININE 1.68 mg/dl (0.61-1.24); POTASSIUM 3.8 mmol/L (3.5-5.1)
[2017-08-24 07:03] LABS: CK-MB 1.81 ng/ml (0.0-2.4); TROPONIN-I 0.477 ng/ml (0.00-0.12)
[2017-08-24] MEDS: AMLODIPINE 5 MG TAB PO SCH (08:37)
[2017-08-24] MEDS: ASPIRIN (EC) 81 MG TAB PO SCH (08:38)
[2017-08-24] MEDS: GABAPENTIN 100 MG CAP PO SCH (08:38)
[2017-08-24] MEDS: TIOTROPIUM 18 MCG CAPSULE INHA DEV INH SCH (08:38)
[2017-08-24] MEDS: ENOXAPARIN 100 MG/ML SYG SC SCH (08:43)
--- NOTE | 2017-08-24 09:19 | CONS ---
Date/Time of Note Date/Time of Note DATE: 08/24/17 TIME: 09:17 Assessment/Plan Assessment/Plan Additional Assessment/Plan 1.Nstemi-likely type 2 in the setting of AF with RVR-now downtrending - NO CP now, on MED rx, will monitor for now 2.AF with RVRV-still mild tachycardia - now in sinus sami - BP stable, no Class I indication for pacer 3.HTN- modest Rx, con't to monitor 4.sob - better with Rx 5.CHF - acute on chronic, james con't to keep euvolemic 6. REnal failure - renal team follows Consultation Date/Type/Reason Admit Date/Time Aug 22, 2017 at 08:22 Initial Consult Date Type of Consultation: cardiology Referring Provider: BLANK RUTH MD 24 HR Interval Summary Free Text/Dictation NO acute events - out of ICU - in sinus now, will keep euvolemic ROS: No fever, no chills, no nausea, no vomiting, no diarrhea/constipation No recent weight changes No chest pain, no PND, no orthopnea, better SOB No dizziness, blurred vision No thirst, no heat or cold intolerance Exam/Review of Systems Vital Signs Vitals Vital Signs Date Time Temp Pulse Resp B/P Pulse Ox O2 Delivery O2 Flow Rate FiO2 08/24/17 08:00 50 08/24/17 07:21 98.3 20 115/58 98 08/23/17 21:30 Nasal Cannula 2.0 Intake and Output 08/23/17 08/23/17 08/24/17 15:00 23:00 07:00 Intake Total 120 ml Output Total 350 ml 100 ml Balance -350 ml -100 ml 120 ml Exam General: WN/WD/NAD, AOx2-3 HEENT: Unicetric/atraumatic/EOMI (follow commands) NECK: JVD elevated, no thyromegaly Lymph: no lymphadenopathy HEART: regular with no S3, II/ systolic murmur at apex LUNGS: Coarse sounds ABD: soft, NT, ND, +BS : Intact Neuro: non focal SKIN: chronic changes EXT: trace edema Results Result Diagram: 08/24/17 0554 08/24/17 0554 Results 24 hrs Laboratory Tests Test 08/24/17 05:54 White Blood Count 7.9 # Red Blood Count 5.12 Hemoglobin 14.5 Hematocrit 44.6 Mean Corpuscular Volume 87.1 Mean Corpuscular Hemoglobin 28.3 L Mean Corpuscular Hemoglobin Concent 32.5 Red Cell Distribution Width 13.2 Platelet Count 291 Mean Platelet Volume 10.4 Neutrophils % 59.5 Lymphocytes % 28.1 Monocytes % 8.7 Eosinophils % 2.0 Basophils % 1.3 Nucleated Red Blood Cells % 0.0 Neutrophils # 4.7 Lymphocytes # 2.2 Monocytes # 0.7 Eosinophils # 0.2 Basophils # 0.1 Nucleated Red Blood Cells # 0.0 Sodium Level 140 Potassium Level 3.8 Chloride Level 102 Carbon Dioxide Level 28 Anion Gap 14 Blood Urea Nitrogen 32 #H Creatinine 1.68 H Glucose Level 105 Calcium Level 8.5 Phosphorus Level 4.4 Magnesium Level 1.7 Creatine Kinase 66 Creatine Kinase Index 2.7 Creatinine Kinase MB (Mass) 1.81 Troponin I 0.477 *H Medications Medications Current Medications Albuterol (Ventolin Hfa) 2 puff Q6H PRN INH WHEEZING AND SOB; Start 08/22/17 at 12:00 Aspirin (Halfprin) 81 mg DAILY PO Last administered on 08/24/17 08:38; Admin Dose 81 MG; Start 08/23/17 at 09:00 Diphenhydramine HCl (Benadryl) 25 mg DAILY PRN PO ALLERGIC REACTION; Start at 11:30 Gabapentin (Neurontin) 100 mg DAILY PO Last administered on 08/24/17 08:38; Admin Dose 100 MG; Start 08/23/17 at 09:00 Lorazepam (Ativan) 0.5 mg DAILY PRN PO ANXIETY Last administered on 08/23/17 00:53; Admin Dose 0.5 MG; Start 08/22/17 at 11:30 Tamsulosin HCl (Flomax) 0.4 mg HS PO Last administered on 08/23/17 20:40; Admin Dose 0.4 MG; Start 08/22/17 at 21:00 Zolpidem Tartrate (Ambien) 5 mg QHS PRN PO INSOMNIA Last administered on 00:20; Admin Dose 5 MG; Start 08/22/17 at 11:30 Metoprolol Succinate (Toprol Xl) 100 mg DAILY PO Last administered on 09:58; Admin Dose 100 MG; Start 08/23/17 at 09:00; Status Future Hold Nitroglycerin (Nitroglycerin (Sl Tab) 0.4 Mg) 1 tab Q5M PRN SL ANGINA Last administered on 08/22/17 17:30; Admin Dose 1 TAB; Start 08/22/17 at 16:30 Enoxaparin Sodium 80 mg 80 mg Q12 SC Last administered on 08/24/17 08:43; Admin Dose 80 MG; Start 08/22/17 at 21:00 Nitroglycerin/ Dextrose (Nitroglycerin 50 Mg/D5W (Pmx)) 250 ml @ 5 mls/hr PRN PRN IV chestpains; Start 08/22/17 at 23:00 Amlodipine Besylate (Norvasc) 5 mg DAILY PO ; Start 08/24/17 at 09:00 Tiotropium [place] (Spiriva) 18 inh DAILY INH Last administered on 08/24/17 08 :38; Admin Dose 18 INH; Start 08/23/17 at 12:00 JESSICA GIORDANO MD Aug 24, 2017 09:19
--- NOTE | 2017-08-24 11:25 | PN ---
Date/Time of Note Date/Time of Note DATE: 08/24/17 TIME: 11:21 Assessment/Plan VTE Prophylaxis VTE Prophylaxis Intervention: LMWH Lines/Catheters [facility] Saline Lock Urinary Cath still in place: No Assessment/Plan Chief Complaint/Hosp Course A/P: 86 yo male with h/o CAD remote stent, permanent A Fib on AC, BPH, OA, COPD who presents with A Fib and RVR and decompensated acute diastolic CHF exacerbation Acute diastolic CHF exacerbation: BNP = [id number] range earlier this admission. Symptoms slowly improving overall -We will switch to Lasix 40 BID PO - still holding bblocker for acute CHF NSTEMI: Suspect this is type II in setting of RVR and CHF. - Trend troponin, f/u CV rec's - Continue aspirin and AC w lovenox for now. A Fib w RVR: slowly improving, now rate controlled after getting digoxin yesterday - monitor HRate (hopefully will continue to improve as patient becomes euvolemic ) - on LMWH for now (takes Eliquis at home, holding for now, resume when d/c'ed home) COPD: slowly improving - Stable, continue home meds, add Duoneb's Q4 hrs prn Hypertension: Blood pressure stable - Continue amlodipine, holding bblocker for now ARF: Likely secondary to IV Lasix use, patient still with adequate urine -We will continue to monitor urine output, once again switching Lasix from IV to p.o. now -If creatinine worsens, consider renal consult. Problems: Subjective 24 Hr Interval Summary Free Text/Dictation Patient out of intensive care unit now, heart rate now rate controlled. Seen by cardiology team this morning. Exam/Review of Systems Vital Signs Vitals Vital Signs Date Time Temp Pulse Resp B/P Pulse Ox O2 Delivery O2 Flow Rate FiO2 08/24/17 08:00 50 08/24/17 07:21 98.3 20 115/58 98 08/23/17 21:30 Nasal Cannula 2.0 Intake and Output 08/23/17 08/23/17 08/24/17 15:00 23:00 07:00 Intake Total 120 ml Output Total 350 ml 100 ml Balance -350 ml -100 ml 120 ml Exam lying in bed, well appearing NAD, PERRL, EOMI Irreg irreg, no murmur Lungs are clear b/l Abdomen is soft nt nt Ext no pitting edema, R calf perhaps a bit more swollen than left Results Result Diagram: 08/24/17 0554 08/24/17 0554 Results 24 hrs Laboratory Tests Test 08/24/17 05:54 White Blood Count 7.9 # Red Blood Count 5.12 Hemoglobin 14.5 Hematocrit 44.6 Mean Corpuscular Volume 87.1 Mean Corpuscular Hemoglobin 28.3 L Mean Corpuscular Hemoglobin Concent 32.5 Red Cell Distribution Width 13.2 Platelet Count 291 Mean Platelet Volume 10.4 Neutrophils % 59.5 Lymphocytes % 28.1 Monocytes % 8.7 Eosinophils % 2.0 Basophils % 1.3 Nucleated Red Blood Cells % 0.0 Neutrophils # 4.7 Lymphocytes # 2.2 Monocytes # 0.7 Eosinophils # 0.2 Basophils # 0.1 Nucleated Red Blood Cells # 0.0 Sodium Level 140 Potassium Level 3.8 Chloride Level 102 Carbon Dioxide Level 28 Anion Gap 14 Blood Urea Nitrogen 32 #H Creatinine 1.68 H Glucose Level 105 Calcium Level 8.5 Phosphorus Level 4.4 Magnesium Level 1.7 Creatine Kinase 66 Creatine Kinase Index 2.7 Creatinine Kinase MB (Mass) 1.81 Troponin I 0.477 *H Medications Medications Current Medications Albuterol (Ventolin Hfa) 2 puff Q6H PRN INH WHEEZING AND SOB; Start 08/22/17 at 12:00 Aspirin (Halfprin) 81 mg DAILY PO Last administered on 08/24/17 08:38; Admin Dose 81 MG; Start 08/23/17 at 09:00 Diphenhydramine HCl (Benadryl) 25 mg DAILY PRN PO ALLERGIC REACTION; Start at 11:30 Gabapentin (Neurontin) 100 mg DAILY PO Last administered on 08/24/17 08:38; Admin Dose 100 MG; Start 08/23/17 at 09:00 Lorazepam (Ativan) 0.5 mg DAILY PRN PO ANXIETY Last administered on 08/23/17 00:53; Admin Dose 0.5 MG; Start 08/22/17 at 11:30 Tamsulosin HCl (Flomax) 0.4 mg HS PO Last administered on 08/23/17 20:40; Admin Dose 0.4 MG; Start 08/22/17 at 21:00 Zolpidem Tartrate (Ambien) 5 mg QHS PRN PO INSOMNIA Last administered on 00:20; Admin Dose 5 MG; Start 08/22/17 at 11:30 Metoprolol Succinate (Toprol Xl) 100 mg DAILY PO Last administered on 09:58; Admin Dose 100 MG; Start 08/23/17 at 09:00; Status Future Hold Nitroglycerin (Nitroglycerin (Sl Tab) 0.4 Mg) 1 tab Q5M PRN SL ANGINA Last administered on 08/22/17 17:30; Admin Dose 1 TAB; Start 08/22/17 at 16:30 Amlodipine Besylate (Norvasc) 5 mg DAILY PO ; Start 08/24/17 at 09:00 Tiotropium [place] (Spiriva) 18 inh DAILY INH Last administered on 08/24/17 08 :38; Admin Dose 18 INH; Start 08/23/17 at 12:00 Enoxaparin Sodium (Lovenox) 80 mg DAILY SC ; Start 08/25/17 at 09:00 LESLEY CORREA Aug 24, 2017 11:25
[2017-08-24] MEDS: FUROSEMIDE 40 MG TAB PO SCH (17:20)
[2017-08-24] MEDS ORDERED: MECLIZINE 12.5 MG TAB PO PRN (21:30)
[2017-08-24] MEDS: TAMSULOSIN (SR) 0.4 MG CAP PO SCH (21:50)
[2017-08-25] VITALS (12 sets, daily range): BP systolic 115–144; BP diastolic 55–74; PULSE 58–68; RESP 16–20
[2017-08-25] MEDS: FUROSEMIDE 40 MG TAB PO SCH ×2 (05:58→17:39)
[2017-08-25] MEDS: GABAPENTIN 100 MG CAP PO SCH (08:01)
[2017-08-25] MEDS: AMLODIPINE 5 MG TAB PO SCH (08:01)
[2017-08-25] MEDS: TIOTROPIUM 18 MCG CAPSULE INHA DEV INH SCH (08:02)
[2017-08-25] MEDS: ASPIRIN (EC) 81 MG TAB PO SCH (08:02)
[2017-08-25] MEDS ORDERED: ENOXAPARIN 100 MG/ML SYG SC SCH (09:00)
--- NOTE | 2017-08-25 09:21 | HP ---
Date/Time of Note Date/Time of Note DATE: 08/25/17 TIME: 08:58 Assessment/Plan VTE Prophylaxis VTE Prophylaxis Intervention: ambulation, anti-embolic stocking VTE Contraindication Reason: peripheral vascular disease Lines/Catheters IV Catheter Type (from Nrsg): [place] [employer] line still needed: No Urinary Cath still in place: No Reason Cath still needed: urinary retention Assessment/Plan Assessment/Plan 1.Acute diastolic CHF exacerbation: elevated BNP,after IV lasix 40 BID to euvolemia 2.IHD Angina; NSTEMI: elevated serial troponins-cardioklogy f/u. - Continue aspirin and AC w NOAC 3.A Fib w RVR: onmetoprolol to control rate < 100 - Continue Xarelto for AC 4.TIA with slurred speech(improved) and unstable gate persists. 5.COPD:Stabl 6.Hypertension: more strict controll; Continue amlodipine 7.BPH 8.AD with progressive worsening of memory 9.ALIN with pain 10.Snoring with apnea 11.Incompleate data due to of forgetfulness and with episodes of losing awareness on and off. 12.Dyslipidemia 13.Left scrotal swelling 14.Lymphocytosis 15.Low magnesium level 16. Acute on chronick renal failure 17.Elevated total bilirubin 1.4 18.Daytime sleepiness. Cont'd Hospitalization Reason: unstable gate.Confusion. HPI/ROS Admit Date/Time Admit Date/Time Aug 22, 2017 at 08:22 86 yo male with h/o paroxizmal A Fib on AC, CAD,s/p stenting, BPH, OA b/l knees,lbp,snoring,uncontrolled HTN, COPD who presented today with worsening of SOB, palpitations accompanied by dizziness and headache this AM. He started to feel dizzy and forgetful last week, came to the office when I was on vocation. He admits of not taking his BP meds as prescribed. he felt heaviness of the head, feelings of losing awareness and not being able to maintain a balance. On and off he was feeling of having uncontrolled heart beats. For about 2 days these symptoms were going and coming and finally daughter realized that he had a slurred speech with confusion. Was brought to ER. In ED, found to be in A Fib w RVR, given IV and PO metoprolol. Seen by me after these events, feels well. Still symptomatic and is afraid of getting up due to of unstable gate and inability to comprehend as of what is happening. Endorses chronic SOB and PND, has very bothersome deviated septum he focuses on.Left testicular swelling getting bigger.His BP was out of control and he feels sensation of heaviness in the head with nausea. ROS Constitutional: diaphoresis, disoriented, fatigue, nausea, poor po, weight change, No chills, No febrile, No improved, No no complaints, No other Eyes: No discharge, No no complaints, No other, No pain, No redness, No visual change ENT: other (decreased hearing.), No bleeding, No congestion, No discharge, No dysphagia, No no complaints, No pain, No sore throat Respiratory: shortness of breath, No cough, No no complaints, No other, No pain, No pleuritic pain, No sputum, No wheezing Cardiovascular: chest pain, edema, lightheadedness, orthopenea, palpitations, paroxysmal nocturnal dyspnea, No no complaints, No other Gastrointestinal: constipation, decreased appetite, flatus, nausea, pain, passing stool, No blood, No diarrhea, No no complaints, No other, No vomiting Genitourinary: dysuria, other (swollen left testicle.), No bleeding, No discharge, No flank pain, No hematuria, No no complaints Musculoskeletal: back pain, bone/joint pain, neck pain, restricted range of motion, No no complaints, No other, No swelling Skin: erythema, laceration, pruritis, No bruising, No no complaints, No other, No rash, No skin lesions Neurologic: confusion, dizziness, focal-weakness (left sided.), headache, No no complaints, No other, No seizure, No syncope Endocrine: dry skin, polydypsia, polyuria, weight change, No no complaints, No other, No temp intolerance Lymphatic: No adenopathy, No lymphadema, No no complaints, No other, No tender nodes Psychological: anxiety, confusion, depression, No nl mood/affect, No no complaints, No other, No suicidal Immunologic: No immunodeficiency, No no complaints, No other, No pruritis, No rhinitis, No urticaria PMH/Family/Social Past Medical History Medical History: angina, congestive heart failure, GERD, hypertension Past Surgical History Past Surgical Hx: angioplasty Family History Significant Family History: heart disease, COPD, hypertension Social History Alcohol Use: none Smoking Status: Former smoker Drug Use: none Exam/Review of Systems Vital Signs Vitals Vital Signs Date Time Temp Pulse Resp B/P Pulse Ox O2 Delivery O2 Flow Rate FiO2 08/25/17 08:11 68 08/25/17 07:52 97.8 16 137/63 91 08/23/17 21:30 Nasal Cannula 2.0 Intake and Output 08/24/17 08/24/17 08/25/17 15:00 23:00 07:00 Intake Total 1100 ml 240 ml Output Total 900 ml Balance 1100 ml -660 ml Exam Constitutional: alert, frail, oriented, well developed, No distress, No non-verbal, No other Psych: anxiety, confusion Head: atraumatic, No hematomas, No lacerations, No normocephalic, No other Eyes: No EOMI, No PERRL, No fundi, disc, No icteric, No nl conjunctiva, No nl lids, No nl sclera, No other ENMT: nl external ears & nose, nl lips & teeth (decreased parker.), No intubated, No mucosa pink and moist, No nl nasal mucosa & septum, No other , No tympanic membranes Neck: bruits, jvd, nuchal rigidity Respiratory: clear to auscultation, diminished breath sounds, intercostal retraction, normal air movement, No congested cough, No crackles/rales, No labored breathing, No other, No respirations, No tactile fremitus, No wheezing Cardiovascular: bruits, edema, irregular rhythm, nl pulses, other (sudden very rapid hert beats.), systolic murmur, No S3, No S4, No diastolic murmur, No gallop, No jugular venous distention ( JVD), No murmurs/extra sounds, No regular rate and rhythm, No rub Gastrointestinal: bowel sounds, distended, nl liver, spleen, No ascites, No firm, No hepatomegaly, No mass, No non-tender, No other, No rebound or guarding, No soft, No splenomegaly, No surgical scars, No tender Genitourinary - Male: CVA tenderness, nl penis, nl scrotum (left swelling.) Musculoskeletal: joint tenderness, muscle tone, muscle weakness Extremities: edema, tenderness, No calf tenderness, No clubbing, No cyanosis, No normal pulses, No other, No palpable cord, No pitting pedal edema Neurological: confused, focal weakness, lethargic, numbness Skin: diaphoresis (on and off.), No ecchymosis, No laceration, No nl turgor, No other, No puncture, No rash or lesions Lymph: No enlarged, No nl lymph nodes, No nontender, No other Labs Result Diagram: 08/24/1755308/24/17553 Medications Medications Current Medications Albuterol (Ventolin Hfa) 2 puff Q6H PRN INH WHEEZING AND SOB; Start 08/22/17 at 12:00 Aspirin (Halfprin) 81 mg DAILY PO Last administered on 08/25/17 08:02; Admin Dose 81 MG; Start 08/23/17 at 09:00 Diphenhydramine HCl (Benadryl) 25 mg DAILY PRN PO ALLERGIC REACTION; Start at 11:30 Gabapentin (Neurontin) 100 mg DAILY PO Last administered on 08/25/17 08:01; Admin Dose 100 MG; Start 08/23/17 at 09:00 Lorazepam (Ativan) 0.5 mg DAILY PRN PO ANXIETY Last administered on 08/23/17 00:53; Admin Dose 0.5 MG; Start 08/22/17 at 11:30 Tamsulosin HCl (Flomax) 0.4 mg HS PO Last administered on 08/24/17 21:50; Admin Dose 0.4 MG; Start 08/22/17 at 21:00 Zolpidem Tartrate (Ambien) 5 mg QHS PRN PO INSOMNIA Last administered on 23:13; Admin Dose 5 MG; Start 08/22/17 at 11:30 Metoprolol Succinate (Toprol Xl) 100 mg DAILY PO Last administered on 09:58; Admin Dose 100 MG; Start 08/23/17 at 09:00; Status Future Hold Nitroglycerin (Nitroglycerin (Sl Tab) 0.4 Mg) 1 tab Q5M PRN SL ANGINA Last administered on 08/22/17 17:30; Admin Dose 1 TAB; Start 08/22/17 at 16:30 Amlodipine Besylate (Norvasc) 5 mg DAILY PO Last administered on 08/25/17 08: 01; Admin Dose 5 MG; Start 08/24/17 at 09:00 Tiotropium [place] (Spiriva) 18 inh DAILY INH Last administered on 08/25/17t 08 :02; Admin Dose 18 INH; Start 08/23/17 at 12:00 Enoxaparin Sodium (Lovenox) 80 mg DAILY SC ; Start 08/25/17 at 09:00 Meclizine HCl (Antivert) 12.5 mg Q12H PRN PO DIZZINESS; Start 08/24/17 at 21:30 RICHARD ROGERS MD Aug 25, 2017 09:08
--- NOTE | 2017-08-25 09:23 | CONS ---
Date/Time of Note Date/Time of Note DATE: 08/25/17 TIME: 09:21 Assessment/Plan Assessment/Plan Additional Assessment/Plan 1.Nstemi-likely type 2 in the setting of AF with RVR-now downtrending - NO CP now, on MED rx, will monitor for now - pt had NORMAL NUC STRES TST 04/2016 - med rx advised now. 2.AF with RVRV-still mild tachycardia - now in sinus sami - BP stable, no Class I indication for pacer - now in sinus 3.HTN- modest Rx, con't to monitor - well rx 4.sob - better with Rx 5.CHF - acute on chronic, will con't to keep euvolemic 6. REnal failure - renal team follows 7. TIA- now feels dizzy, primary team follows Consultation Date/Type/Reason Admit Date/Time Aug 22, 2017 at 08:22 Type of Consultation: cardiology Referring Provider: BLANK RUTH MD 24 HR Interval Summary Free Text/Dictation NO acute events - pt denies CP, no new a. fib episodes - feels dizzy, con't TIA RX ROS: No fever, no chills, no nausea, no vomiting, no diarrhea/constipation No recent weight changes No chest pain, no PND, no orthopnea + dizziness, blurred vision No thirst, no heat or cold intolerance Exam/Review of Systems Vital Signs Vitals Vital Signs Date Time Temp Pulse Resp B/P Pulse Ox O2 Delivery O2 Flow Rate FiO2 08/25/17 08:11 68 08/25/17 07:52 97.8 16 137/63 91 08/23/17 21:30 Nasal Cannula 2.0 Intake and Output 08/24/17 08/24/17 08/25/17 15:00 23:00 07:00 Intake Total 1100 ml 240 ml Output Total 900 ml Balance 1100 ml -660 ml Exam General: WN/WD/NAD, AOx 2-3 HEENT: Unicetric/atraumatic/EOMI (follow commands) NECK: JVD elevated, no thyromegaly Lymph: no lymphadenopathy HEART: regular with no S3, II/ systolic murmur at apex LUNGS: Coarse sounds ABD: soft, NT, ND, +BS : Intact Neuro: non focal SKIN: chronic changes EXT: trace edema Results Result Diagram: 08/24/17 0554 08/24/17 0554 Medications Medications Current Medications Albuterol (Ventolin Hfa) 2 puff Q6H PRN INH WHEEZING AND SOB; Start 08/22/17 at 12:00 Aspirin (Halfprin) 81 mg DAILY PO Last administered on 08/25/17 08:02; Admin Dose 81 MG; Start 08/23/17 at 09:00 Diphenhydramine HCl (Benadryl) 25 mg DAILY PRN PO ALLERGIC REACTION; Start at 11:30 Gabapentin (Neurontin) 100 mg DAILY PO Last administered on 08/25/17 08:01; Admin Dose 100 MG; Start 08/23/17 at 09:00 Lorazepam (Ativan) 0.5 mg DAILY PRN PO ANXIETY Last administered on 08/23/17 00:53; Admin Dose 0.5 MG; Start 08/22/17 at 11:30 Tamsulosin HCl (Flomax) 0.4 mg HS PO Last administered on 08/24/17 21:50; Admin Dose 0.4 MG; Start 08/22/17 at 21:00 Zolpidem Tartrate (Ambien) 5 mg QHS PRN PO INSOMNIA Last administered on 23:13; Admin Dose 5 MG; Start 08/22/17 at 11:30 Metoprolol Succinate (Toprol Xl) 100 mg DAILY PO Last administered on 09:58; Admin Dose 100 MG; Start 08/23/17 at 09:00; Status Future Hold Nitroglycerin (Nitroglycerin (Sl Tab) 0.4 Mg) 1 tab Q5M PRN SL ANGINA Last administered on 08/22/17 17:30; Admin Dose 1 TAB; Start 08/22/17 at 16:30 Amlodipine Besylate (Norvasc) 5 mg DAILY PO Last administered on 08/25/17 08: 01; Admin Dose 5 MG; Start 08/24/17 at 09:00 Tiotropium [place] (Spiriva) 18 inh DAILY INH Last administered on 08/25/17 08 :02; Admin Dose 18 INH; Start 08/23/17 at 12:00 Enoxaparin Sodium (Lovenox) 80 mg DAILY SC Last administered on 08/25/17 09:03 ; Admin Dose 80 MG; Start 08/25/17 at 09:00 Meclizine HCl (Antivert) 12.5 mg Q12H PRN PO DIZZINESS; Start 08/24/17 at 21:30 JESSICA GIORDANO MD Aug 25, 2017 09:23
[2017-08-25] MEDS ORDERED: METOPROLOL (XL) 100 MG TAB PO ONE (09:30)
[2017-08-25] MEDS ORDERED: ASPIRIN (EC) 325 MG TAB PO SCH (09:30)
[2017-08-25] MEDS ORDERED: ENALAPRIL 5 MG TAB PO ONE (09:30)
[2017-08-25 10:10] LABS: BASOPHIL # 0.1 10^3/ul (0.0-0.1); BASOPHILS % 0.8 % (0.0-2.0); EOSINOPHILS # 0.1 10^3/ul (0.0-0.5); EOSINOPHILS % 1.2 % (0.0-7.0); HEMATOCRIT 46.8 % (42.0-52.0); HEMOGLOBIN 15.5 g/dl (14.0-18.0); LYMPHOCYTES % 21.8 % (15.0-51.0); MEAN CORPUSCULAR HEMOGLOBIN 28.9 pg (29.0-33.0); MEAN CORPUSCULAR HGB CONC 33.1 g/dl (32.0-37.0); MEAN CORPUSCULAR VOLUME 87.3 fl (82.0-101.0); MEAN PLATELET VOLUME 10.4 fl (7.4-10.4); MONOCYTE # 0.8 10^3/ul (0.3-0.9); MONOCYTES % 8.9 % (0.0-11.0); NEUTROPHILS % 66.9 % (39.0-77.0); PLATELET COUNT 332 10^3/UL (140-415); RED BLOOD COUNT 5.36 10^6/ul (4.70-6.10); RED CELL DISTRIBUTION WIDTH 12.9 % (11.5-14.5)
[2017-08-25 10:33] LABS: CALCIUM 8.9 mg/dl (8.4-10.2); CREATININE 1.7 mg/dl (0.61-1.24); POTASSIUM 3.7 mmol/L (3.5-5.1)
--- NOTE | 2017-08-25 11:14 | CONS ---
Date/Time of Note Date/Time of Note DATE: 08/25/17 TIME: 11:07 Assessment/Plan Assessment/Plan Additional Assessment/Plan Chest x-ray was reviewed from of this month which is showing very mild pulmonary edema. Assessment recommendations; 1. Patient admitted with non-STEMI with significant interval improvement. 2. History of hypertension, BPH, obstructive sleep apnea. 3. COPD. 4. Mild pulmonary edema with interval improvement. 5. Chronic renal insufficiency. 6. Chronic atrial fibrillation. Continue current treatment. Consultation Date/Type/Reason Admit Date/Time Aug 22, 2017 at 08:22 Date of Consultation: Aug 25, 2017 Type of Consultation: Pulmonary Hx of Present Illness Pulmonary consultation requested for evaluation of shortness of breath. History of presenting any; patient is a pleasant 86-year-old male who was admitted on the of this month with complaints of chest pain. Patient has been diagnosed with non-STEMI. Patient also was found to be in mild CHF due to diastolic dysfunction but according to him the shortness of breath is markedly improved over the last day or so. Patient denies any further chest pain. Any wheezing, sputum production, fever. Patient does complain of chronic dyspnea on exertion. Which has been fairly stable. Denies any fever or chills. Any abdominal pain, nausea vomiting. Past medical history; 1. Patient with a history of diastolic dysfunction. 2. BPH. 3. Obstructive sleep apnea. 4. COPD. 5. Chronic renal insufficiency. 6. Hypertension. 7. History of left intraocular lens implantation. Medications; reviewed. Allergies; multiple as outlined above. Social history; patient quit smoking 3 years ago has a oximetry [id number] smoking history. Family history; patient is he has 2 children. 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 Review systems; denies any headache, visual changes. Any sinus symptoms. Shortness of breath is markedly improved. Denies any cough wheezing or sputum production. Denies any abdominal pain nausea vomiting. Denies any melena or hematochezia. Any edema. Complains of chronic dyspnea on exertion. Weight is stable. General exam; elderly male, awake and alert. Sitting in a chair by bedside. Currently in no distress. Eyes: No discharge, No no complaints, No other, No pain, No redness, No visual change ENT: other (decreased hearing.), No bleeding, No congestion, No discharge, No dysphagia, No no complaints, No pain, No sore throat Respiratory: shortness of breath, No cough, No no complaints, No other, No pain, No pleuritic pain, No sputum, No wheezing Cardiovascular: chest pain, edema, lightheadedness, orthopenea, palpitations, paroxysmal nocturnal dyspnea, No no complaints, No other Gastrointestinal: constipation, decreased appetite, flatus, nausea, pain, passing stool, No blood, No diarrhea, No no complaints, No other, No vomiting Genitourinary: dysuria, other (swollen left testicle.), No bleeding, No discharge, No flank pain, No hematuria, No no complaints Musculoskeletal: back pain, bone/joint pain, neck pain, restricted range of motion, No no complaints, No other, No swelling Skin: erythema, laceration, pruritis, No bruising, No no complaints, No other, No rash, No skin lesions Neurologic: confusion, dizziness, focal-weakness (left sided.), headache, No no complaints, No other, No seizure, No syncope Lymphatic: No adenopathy, No lymphadema, No no complaints, No other, No tender nodes Psychological: anxiety, confusion Immunologic: No immunodeficiency, No no complaints, No other, No pruritis, No rhinitis, No urticaria Past Medical History Medical History: angina, congestive heart failure, GERD, hypertension Past Surgical History Past Surgical Hx: angioplasty Social History Alcohol Use: none Smoking Status: Former smoker Drug Use: none Exam/Review of Systems Vital Signs Vitals Vital Signs Date Time Temp Pulse Resp B/P Pulse Ox O2 Delivery O2 Flow Rate FiO2 08/25/17 08:11 68 08/25/17 07:52 97.8 16 137/63 91 08/23/17 21:30 Nasal Cannula 2.0 Intake and Output 08/24/17 08/24/17 08/25/17 14:59 22:59 06:59 Intake Total 1100 ml 240 ml Output Total 900 ml Balance 1100 ml -660 ml Exam HEENT exam; supple neck, no JVD. No lymphadenopathy. Midline trachea. No thyromegaly. Patient is edentulous. Has a left intraocular lens implant. No neck bruits. Chest exam; diminished but clear breath sounds. There is a lipoma in the mid back. There is very mild scoliosis. S2 audible, no murmurs. Abdomen exam; soft, nontender. Nondistended. No organomegaly. Bowel sounds audible. Extremity exam; no peripheral edema. Pulses 1+ bilaterally. No clubbing. [employer]DS [employer]UD[employer] exam; no focal deficit. Results Result Diagram: 08/25/1745 08/25/1745 Results 24 hrs Laboratory Tests Test 08/25/17 09:45 White Blood Count 9.0 Red Blood Count 5.36 Hemoglobin 15.5 Hematocrit 46.8 Mean Corpuscular Volume 87.3 Mean Corpuscular Hemoglobin 28.9 L Mean Corpuscular Hemoglobin Concent 33.1 Red Cell Distribution Width 12.9 Platelet Count 332 Mean Platelet Volume 10.4 Neutrophils % 66.9 Lymphocytes % 21.8 Monocytes % 8.9 Eosinophils % 1.2 Basophils % 0.8 Nucleated Red Blood Cells % 0.0 Neutrophils # 6.0 Lymphocytes # 2.0 Monocytes # 0.8 Eosinophils # 0.1 Basophils # 0.1 Nucleated Red Blood Cells # 0.0 Sodium Level 136 Potassium Level 3.7 Chloride Level 98 Carbon Dioxide Level 29 Anion Gap 13 Blood Urea Nitrogen 32 H Creatinine 1.70 H Glucose Level 159 Calcium Level 8.9 Medications Medications Current Medications Albuterol (Ventolin Hfa) 2 puff Q6H PRN INH WHEEZING AND SOB; Start 08/22/17 at 12:00 Gabapentin (Neurontin) 100 mg DAILY PO Last administered on 08/25/17 08:01; Admin Dose 100 MG; Start 08/23/17 at 09:00 Lorazepam (Ativan) 0.5 mg DAILY PRN PO ANXIETY Last administered on 08/23/17 00:53; Admin Dose 0.5 MG; Start 08/22/17 at 11:30 Tamsulosin HCl (Flomax) 0.4 mg HS PO Last administered on 08/24/17 21:50; Admin Dose 0.4 MG; Start 08/22/17 at 21:00 Zolpidem Tartrate (Ambien) 5 mg QHS PRN PO INSOMNIA Last administered on 23:13; Admin Dose 5 MG; Start 08/22/17 at 11:30 Metoprolol Succinate (Toprol Xl) 100 mg DAILY PO Last administered on 09:58; Admin Dose 100 MG; Start 08/23/17 at 09:00; Status Future Hold Nitroglycerin (Nitroglycerin (Sl Tab) 0.4 Mg) 1 tab Q5M PRN SL ANGINA Last administered on 08/22/17 17:30; Admin Dose 1 TAB; Start 08/22/17 at 16:30 Amlodipine Besylate (Norvasc) 5 mg DAILY PO Last administered on 08/25/17 08: 01; Admin Dose 5 MG; Start 08/24/17 at 09:00 Tiotropium [place] (Spiriva) 18 inh DAILY INH Last administered on 08/25/17 08 :02; Admin Dose 18 INH; Start 08/23/17 at 12:00 Meclizine HCl 12.5 mg 12.5 mg Q12H PRN PO DIZZINESS; Start 08/24/17 at 21:30 Magnesium Sulfate (Magnesium Sulfate 2 Gm/50 ml) 50 ml @ 25 mls/hr ONCE IVPB ; Start 08/25/17 at 09:30; Stop 08/27/17 at 08:00 Pantoprazole (Protonix Iv) 40 mg DAILY IV ; Start 08/25/17 at 10:00 LAUREN CHANEY Aug 25, 2017 11:14
[2017-08-25] MEDS: MAGNESIUM SULFATE 2 GM/50 ML 50 ML IVPB SCH (11:34)
[2017-08-25] MEDS: PANTOPRAZOLE 40 MG INJ IV SCH (11:34)
--- NOTE | 2017-08-25 14:05 | RADRPT ---
Vent Rate: 112 bpm RR Interval: 0 msec CA Interval: 0 msec QRS Duration: 88 msec QT Interval: 332 msec QTC Interval: 453 msec P-R-T Cornelius: 0 - 4 - 30 degrees Atrial fibrillation with rapid ventricular response Possible Anterior infarct , age undetermined Abnormal ECG Electronically Signed By: Sukhdeep Galan [id number]
[2017-08-25] MEDS: TAMSULOSIN (SR) 0.4 MG CAP PO SCH (20:36)
[2017-08-25] MEDS: ZOLPIDEM 5 MG TAB PO PRN (23:17)
[2017-08-26] VITALS (10 sets, daily range): BP systolic 92–145; BP diastolic 50–65; PULSE 65–80; RESP 16–20
[2017-08-26] MEDS: FUROSEMIDE 40 MG TAB PO SCH ×2 (05:34→18:00)
--- NOTE | 2017-08-26 06:57 | CONS ---
DATE OF ADMISSION: 08/22/2017 DATE OF CONSULTATION: 08/26/2017 HISTORY OF PRESENT ILLNESS: The patient is an 86-year-old male admitted to the hospital with acute exacerbation of congestive heart failure, angina, code STEMI, and atrial fibrillation. The patient on admission had slurred speech with gait difficulty with suspected underlying lacunar infarction versus stroke. I got a call about him by Dr. Champion about him for more evaluation and treatment. MEDICATION: The patient's current medications include: 1. Protonix 40 mg once a day. 2. Antivert 12.5 mg every 12 hours as needed. 3. Lasix 40 mg twice a day. 4. Norvasc 5 mg once a day. 5. Neurontin 100 mg once a day. 6. Flomax 0.4 mg at night. 7. Albuterol inhaler twice a day. 8. Ativan 0.5 mg as needed. 9. Ambien 5 mg once at night. 10. IV fluids. PAST MEDICAL HISTORY: In the form of hypertension, chronic obstructive pulmonary disease, atrial fibrillation, Alzheimer disease, obstructive sleep apnea, snoring, dyslipidemia, scrotal swelling, lymphocytosis, low magnesium. PHYSICAL EXAMINATION: NEUROLOGIC: The patient is awake, alert, and oriented, following simple commands, accompanied by his . I talked to his daughter over the phone. Looks confused. Cranial nerve exam: II: Pupils equal on both sides reactive to light. III, IV, : Extraocular muscles intact. V: Equal sensation to face. VII: Symmetrical face. VIII: Decreased hearing bilaterally. X: . XI: Can elevate shoulder. tongue. Motor: Decreased right hand jet dyeing machine tender, 4 plus/5. Sensation: for gloves and stockings, and temperature. Coordination: [id number] is intact. HEART: Regular rate and rhythm. LUNGS: Equal breath sounds. ABDOMEN: Soft, relaxed, nondistended, no tenderness. ASSESSMENT AND PLAN:: 1. The patient is 86 years old with underlying transient ischemic attack. The patient is already on Xarelto which is a good prevention for stroke especially since the patient has a history of atrial fibrillation. 2. Underlying hypertension. Keep the blood pressure level over 140/90 or less. Avoid more strokes. 3. Underlying Alzheimer disease. I will start the patient on Namenda 5 mg and see how the patient responds for that. I will follow up the patient with mini-mental status and check his memory on a regular basis. 4. Snoring with suspected sleep apnea. Follow up the patient as an outpatient for more evaluation and treatment. Again, thank you Dr. Champion for asking me to see the patient with you. Dictated By: Ramon Munoz MD /[email or web address] /Document#: [id number]
[2017-08-26 07:55] LABS: BASOPHIL # 0.1 10^3/ul (0.0-0.1); BASOPHILS % 0.7 % (0.0-2.0); EOSINOPHILS # 0.1 10^3/ul (0.0-0.5); EOSINOPHILS % 1.6 % (0.0-7.0); HEMATOCRIT 43.5 % (42.0-52.0); HEMOGLOBIN 14.2 g/dl (14.0-18.0); LYMPHOCYTES # 2.4 10^3/ul (0.8-2.9); LYMPHOCYTES % 28.5 % (15.0-51.0); MEAN CORPUSCULAR HEMOGLOBIN 28.8 pg (29.0-33.0); MEAN CORPUSCULAR HGB CONC 32.6 g/dl (32.0-37.0); MEAN CORPUSCULAR VOLUME 88.2 fl (82.0-101.0); MEAN PLATELET VOLUME 10.7 fl (7.4-10.4); MONOCYTES % 11.4 % (0.0-11.0); NEUTROPHIL # 4.8 10^3/ul (1.6-7.5); NEUTROPHILS % 57.4 % (39.0-77.0); PLATELET COUNT 292 10^3/UL (140-415); RED BLOOD COUNT 4.93 10^6/ul (4.70-6.10); RED CELL DISTRIBUTION WIDTH 13.2 % (11.5-14.5); WHITE BLOOD COUNT 8.3 10^3/ul (4.8-10.8)
[2017-08-26 08:13] LABS: CALCIUM 8.7 mg/dl (8.4-10.2); CREATININE 1.74 mg/dl (0.61-1.24); POTASSIUM 3.7 mmol/L (3.5-5.1)
[2017-08-26] MEDS: TIOTROPIUM 18 MCG CAPSULE INHA DEV INH SCH (09:16)
[2017-08-26] MEDS: PANTOPRAZOLE 40 MG INJ IV SCH (09:16)
[2017-08-26] MEDS: MAGNESIUM SULFATE 2 GM/50 ML 50 ML IVPB SCH (09:30)
--- NOTE | 2017-08-26 10:26 | CONS ---
Date/Time of Note Date/Time of Note DATE: 08/26/17 TIME: 10:24 Assessment/Plan Assessment/Plan Additional Assessment/Plan 1.Nstemi-likely type 2 in the setting of AF with RVR-now downtrending - NO CP now, on MED rx, will monitor for now - pt had NORMAL NUC STRES TST 04/2016 - med rx advised now. NO CP now 2.AF with RVRV-still mild tachycardia - now in sinus sami - BP stable, no Class I indication for pacer - now in sinus - IN SINUS NOW 3.HTN- modest Rx, con't to monitor - well rx 4.sob - better with Rx 5.CHF - acute on chronic, will con't to keep euvolemic 6. REnal failure - renal team follows 7. TIA- now feels dizzy, primary team follows - neurology follows Consultation Date/Type/Reason Admit Date/Time Aug 22, 2017 at 08:22 Type of Consultation: Pulmonary Referring Provider: BLANK RUTH MD 24 HR Interval Summary Free Text/Dictation NO acute events - no CP, in sinus now ROS: No fever, no chills, no nausea, no vomiting, no diarrhea/constipation No recent weight changes No chest pain, no PND, no orthopnea + dizziness, blurred vision No thirst, no heat or cold intolerance Exam/Review of Systems Vital Signs Vitals Vital Signs Date Time Temp Pulse Resp B/P Pulse Ox O2 Delivery O2 Flow Rate FiO2 08/26/17 08:02 97.8 62 16 134/61 90 08/23/17 21:30 Nasal Cannula 2.0 Intake and Output 08/25/17 08/25/17 08/26/17 14:59 22:59 06:59 Intake Total 1130 ml 800 ml Output Total 400 ml 800 ml Balance 730 ml 0 ml Exam General: WN/WD/NAD, AOx 3 HEENT: Unicetric/atraumatic/EOMI (follows commands) NECK: JVD elevated, no thyromegaly Lymph: no lymphadenopathy HEART: regular with no S3, II/ systolic murmur at apex LUNGS: Coarse sounds ABD: soft, NT, ND, +BS : Intact Neuro: non focal SKIN: chronic changes EXT: trace edema Results Result Diagram: 08/26/1746 08/26/1746 Results 24 hrs Laboratory Tests Test 08/25/17 15:30 08/26/17 06:46 Stool Occult Blood NEGATIVE White Blood Count 8.3 Red Blood Count 4.93 Hemoglobin 14.2 Hematocrit 43.5 Mean Corpuscular Volume 88.2 Mean Corpuscular Hemoglobin 28.8 L Mean Corpuscular Hemoglobin Concent 32.6 Red Cell Distribution Width 13.2 Platelet Count 292 Mean Platelet Volume 10.7 H Neutrophils % 57.4 Lymphocytes % 28.5 Monocytes % 11.4 H Eosinophils % 1.6 Basophils % 0.7 Nucleated Red Blood Cells % 0.0 Neutrophils # 4.8 Lymphocytes # 2.4 Monocytes # 1.0 H Eosinophils # 0.1 Basophils # 0.1 Nucleated Red Blood Cells # 0.0 Sodium Level 140 Potassium Level 3.7 Chloride Level 100 Carbon Dioxide Level 29 Anion Gap 15 Blood Urea Nitrogen 32 H Creatinine 1.74 H Glucose Level 110 # Calcium Level 8.7 Medications Medications Current Medications Albuterol (Ventolin Hfa) 2 puff Q6H PRN INH WHEEZING AND SOB; Start 08/22/17 at 12:00 Gabapentin (Neurontin) 100 mg DAILY PO Last administered on 08/25/17 08:01; Admin Dose 100 MG; Start 08/23/17 at 09:00 Lorazepam (Ativan) 0.5 mg DAILY PRN PO ANXIETY Last administered on 08/23/17 00:53; Admin Dose 0.5 MG; Start 08/22/17 at 11:30 Tamsulosin HCl (Flomax) 0.4 mg HS PO Last administered on 08/25/17 20:36; Admin Dose 0.4 MG; Start 08/22/17 at 21:00 Zolpidem Tartrate (Ambien) 5 mg QHS PRN PO INSOMNIA Last administered on 23:17; Admin Dose 5 MG; Start 08/22/17 at 11:30 Metoprolol Succinate (Toprol Xl) 100 mg DAILY PO Last administered on 09:58; Admin Dose 100 MG; Start 08/23/17 at 09:00; Status Future Hold Nitroglycerin (Nitroglycerin (Sl Tab) 0.4 Mg) 1 tab Q5M PRN SL ANGINA Last administered on 08/22/17 17:30; Admin Dose 1 TAB; Start 08/22/17 at 16:30 Amlodipine Besylate (Norvasc) 5 mg DAILY PO Last administered on 08/25/17 08: 01; Admin Dose 5 MG; Start 08/24/17 at 09:00 Tiotropium [place] (Spiriva) 18 inh DAILY INH Last administered on 08/26/17 09 :16; Admin Dose 18 INH; Start 08/23/17 at 12:00 Meclizine HCl 12.5 mg 12.5 mg Q12H PRN PO DIZZINESS; Start 08/24/17 at 21:30 Magnesium Sulfate (Magnesium Sulfate 2 Gm/50 ml) 50 ml @ 25 mls/hr ONCE IVPB Last administered on 08/25/17 11:34; Admin Dose 25 MLS/HR; Start 08/25/17 at 09 :30; Stop 08/27/17 at 08:00 Pantoprazole (Protonix Iv) 40 mg DAILY IV Last administered on 08/26/17 09:16 ; Admin Dose 40 MG; Start 08/25/17 at 10:00 JESSICA GIORDANO MD Aug 26, 2017 10:26
--- NOTE | 2017-08-26 11:36 | CONS ---
Date/Time of Note Date/Time of Note DATE: 08/26/17 TIME: 11:34 Consult Date/Type/Reason Admit Date/Time Aug 22, 2017 at 08:22 Initial Consult Date 08/25/17 Type of Consultation: Pulmonary Ordering Provider: BLANK RUTH MD Subjective Patient comfortable. No respiratory distress. Sitting up in chair. Objective Vital Signs Date Time Temp Pulse Resp B/P Pulse Ox O2 Delivery O2 Flow Rate FiO2 08/26/17 08:02 97.8 62 16 134/61 90 08/23/17 21:30 Nasal Cannula 2.0 Intake and Output 08/25/17 08/25/17 08/26/17 15:00 23:00 07:00 Intake Total 1130 ml 800 ml Output Total 400 ml 800 ml Balance 730 ml 0 ml Exam GENERAL: VITAL SIGNS: per chart NECK: Supple. No JVD or lymphadenopathy. CARDIAC EXAM: S1, S2. No added sounds or murmurs. CHEST: clear bilaterally, No added sounds, rales or wheezes ABDOMEN: Soft, nontender. No guarding or rebound. EXTREMITIES: No cyanosis, clubbing or edema. NEUROLOGIC: Generalized weakness. No focal deficits. Results/Medications Result Diagram: 08/26/17 0646 08/26/17 0646 Results 24 hrs Laboratory Tests Test 08/25/17 15:30 08/26/17 06:46 Stool Occult Blood NEGATIVE White Blood Count 8.3 Red Blood Count 4.93 Hemoglobin 14.2 Hematocrit 43.5 Mean Corpuscular Volume 88.2 Mean Corpuscular Hemoglobin 28.8 L Mean Corpuscular Hemoglobin Concent 32.6 Red Cell Distribution Width 13.2 Platelet Count 292 Mean Platelet Volume 10.7 H Neutrophils % 57.4 Lymphocytes % 28.5 Monocytes % 11.4 H Eosinophils % 1.6 Basophils % 0.7 Nucleated Red Blood Cells % 0.0 Neutrophils # 4.8 Lymphocytes # 2.4 Monocytes # 1.0 H Eosinophils # 0.1 Basophils # 0.1 Nucleated Red Blood Cells # 0.0 Sodium Level 140 Potassium Level 3.7 Chloride Level 100 Carbon Dioxide Level 29 Anion Gap 15 Blood Urea Nitrogen 32 H Creatinine 1.74 H Glucose Level 110 # Calcium Level 8.7 Medications Current Medications Albuterol (Ventolin Hfa) 2 puff Q6H PRN INH WHEEZING AND SOB; Start 08/22/17 at 12:00 Gabapentin (Neurontin) 100 mg DAILY PO Last administered on 08/25/17 08:01; Admin Dose 100 MG; Start 08/23/17 at 09:00 Lorazepam (Ativan) 0.5 mg DAILY PRN PO ANXIETY Last administered on 08/23/17 00:53; Admin Dose 0.5 MG; Start 08/22/17 at 11:30 Tamsulosin HCl (Flomax) 0.4 mg HS PO Last administered on 08/25/17 20:36; Admin Dose 0.4 MG; Start 08/22/17 at 21:00 Zolpidem Tartrate (Ambien) 5 mg QHS PRN PO INSOMNIA Last administered on 23:17; Admin Dose 5 MG; Start 08/22/17 at 11:30 Metoprolol Succinate (Toprol Xl) 100 mg DAILY PO Last administered on 09:58; Admin Dose 100 MG; Start 08/23/17 at 09:00; Status Future Hold Nitroglycerin (Nitroglycerin (Sl Tab) 0.4 Mg) 1 tab Q5M PRN SL ANGINA Last administered on 08/22/17 17:30; Admin Dose 1 TAB; Start 08/22/17 at 16:30 Amlodipine Besylate (Norvasc) 5 mg DAILY PO Last administered on 08/25/17 08: 01; Admin Dose 5 MG; Start 08/24/17 at 09:00 Tiotropium [place] (Spiriva) 18 inh DAILY INH Last administered on 08/26/17 09 :16; Admin Dose 18 INH; Start 08/23/17 at 12:00 Meclizine HCl 12.5 mg 12.5 mg Q12H PRN PO DIZZINESS; Start 08/24/17 at 21:30 Magnesium Sulfate (Magnesium Sulfate 2 Gm/50 ml) 50 ml @ 25 mls/hr ONCE IVPB Last administered on 08/25/17 11:34; Admin Dose 25 MLS/HR; Start 08/25/17 at 09 :30; Stop 08/27/17 at 08:00 Pantoprazole (Protonix Iv) 40 mg DAILY IV Last administered on 08/26/17 09:16 ; Admin Dose 40 MG; Start 08/25/17 at 10:00 Assessment/Plan Chief Complaint/Hosp Course Assessment 1. Patient admitted with non-STEMI with significant interval improvement. 2. History of hypertension, BPH, obstructive sleep apnea. 3. COPD. Currently stable. 4. Mild pulmonary edema with interval improvement. 5. Chronic renal insufficiency. 6. Chronic atrial fibrillation. Plan 1. Continue cardiac recommendations 2. Encourage ambulation 3. Outpatient pulmonary function testing Stable for discharge from pulmonary standpoint Problems: KARINA DEL RIO MD, [facility] Aug 26, 2017 11:36
[2017-08-26] MEDS: AMLODIPINE 5 MG TAB PO SCH (12:52)
[2017-08-26] MEDS: GABAPENTIN 100 MG CAP PO SCH (12:52)
[2017-08-26] MEDS: TAMSULOSIN (SR) 0.4 MG CAP PO SCH (20:06)
--- NOTE | 2017-08-26 20:53 | CONS ---
DATE OF ADMISSION: 08/22/2017 DATE OF CONSULTATION: 08/26/2017 HISTORY OF PRESENT ILLNESS: Dr. Champion, thank you for asking me to see Mr. Acevedo in GI consultation. As you know, patient is 86-year-old [place] male, at this time requested by Dr. Champion for me to see the patient. He was admitted with nonspecific history of abdominal discomfort, dizziness, palpitation and shortness of breath. It appears that he has a non STEMI indicating myocardial infarction and he has no history of vomiting, no GI bleeding. GI consultation is requested because of elevated bilirubin of 1.4, indirect is 1.4, AST 29, ALT 31, alk phos 64, troponin 1.87 on admission on the . On the is 0.877, and on it is 0.477. From the urogenital standpoint, AST, ALT, alk phos are normal. No history of alcoholism currently. He used to drink in the past. He does have a history of nonspecific abdominal pain. No vomiting. No GI bleeding. No fever. No diarrhea. PAST MEDICAL HISTORY: Include status post coronary artery stent placement several years ago, permanent atrial fibrillation on AC, history of BPH, osteoarthritis, COPD, atrial fibrillation. SOCIAL HISTORY: As mentioned above. 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 PHYSICAL EXAMINATION: GENERAL: Patient is an 86-year-old [place] gentleman. He is alert. He is afebrile. HEART: Normal heart sounds. RESPIRATORY: Normal breath sounds. ABDOMEN: Showed unremarkable findings. He does have irregular beats of the heart at times. LABORATORY: Essentially as mentioned above. WBC is 8300, platelet count 292,000, lymphocytes 57. Neutrophil 57, lymphocytes 28.5. He also has elevated troponin level of 1.870 and down to 0.877. IMPRESSION: Patient presenting with history of nonspecific abdominal discomfort, nausea, and history of shortness of breath. He was also having dizziness. It appears he has myocardial infarction, which is a non STEMI type. He has also mild pulmonary congestion. The elevated bilirubin is pretty nonspecific. It could be due to congestive heart failure causing hypoxic liver damage but choledocholithiasis unlikely, hepatitis unlikely. PLAN: At this time, I agree ultrasound of the abdomen and I will be happy to repeat the liver panel and I will be happy to follow this patient along with you. Dr. Champion, thank you for this consultation. Dictated By: Yung Stephens MD /[email or web address] /Document#: [id number] CC: Gonzalez Champion MD;*EndCC*
--- NOTE | 2017-08-26 21:16 | PN ---
Date/Time of Note Date/Time of Note DATE: 08/26/17 TIME: 21:13 Assessment/Plan VTE Prophylaxis VTE Prophylaxis Intervention: ambulation VTE Contraindication Reason: peripheral vascular disease Lines/Catheters IV Catheter Type (from Nrsg): Peripheral IV Central line still needed: No Urinary Cath still in place: No Reason Cath still needed: urinary retention Assessment/Plan Assessment/Plan 1.Acute diastolic CHF exacerbation: elevated BNP,after IV lasix 40 BID to euvolemia 2.IHD Angina; NSTEMI: elevated serial troponins-cardiokly f/u. - Continue aspirin and AC w NOAC 3.A Fib w RVR: onmetoprolol to control rate < 100 - Continue Xarelto for AC 4.TIA with slurred speech(improved) and unstable gate persists. 5.COPD:Stabl 6.Hypertension: more strict controll; Continue amlodipine 7.BPH 8.AD with progressive worsening of memory 9.ALIN with pain 10.Snoring with apnea 11.Incompleate data due to of forgetfulness and with episodes of losing awareness on and off. 12.Dyslipidemia 13.Left scrotal swelling 14.Lymphocytosis 15.Low magnesium level 16. Acute on chronick renal failure 17.Elevated total bilirubin 1.4 18.Daytime sleepiness. 19.Melena x 2 with negative occult blood test. Cont'd Hospitalization Cont'd Hospitalization Reason: black stool. Subjective 24 Hr Interval Summary Free Text/Dictation I am less dizzy. No bm today. I am afraid to walk due to of the fear of a fall. Constitutional: poor po, requiring IVF Eyes: No discharge, No no complaints, No other, No pain, No redness, No visual change ENT: dysphagia, No bleeding, No congestion, No discharge, No no complaints, No other, No pain , No sore throat Respiratory: shortness of breath, No cough, No no complaints, No other, No pain, No pleuritic pain, No sputum, No wheezing Cardiovascular: chest pain, lightheadedness, orthopenea, palpitations, No edema, No no complaints, No other, No paroxysmal nocturnal dyspnea Gastrointestinal: constipation, flatus, nausea, passing stool Psychological: anxiety, confusion (less confused than yesterday.) Exam/Review of Systems Vital Signs Vitals Vital Signs Date Time Temp Pulse Resp B/P Pulse Ox O2 Delivery O2 Flow Rate FiO2 08/26/17 20:19 98.1 83 20 135/61 96 08/23/17 21:30 Nasal Cannula 2.0 Intake and Output 08/25/17 08/25/17 08/26/17 15:00 23:00 07:00 Intake Total 1130 ml 800 ml Output Total 400 ml 800 ml Balance 730 ml 0 ml Exam Constitutional: alert, frail, oriented, well developed Psych: anxiety, confusion, No depression, No nl mood/affect, No no complaints, No other, No suicidal Head: atraumatic, normocephalic, No hematomas, No lacerations, No other Eyes: EOMI, PERRL, icteric (nonicteric.), nl lids ENMT: No intubated, No mucosa pink and moist, No nl external ears & nose, No nl lips & teeth, No nl nasal mucosa & septum, No other, No tympanic membranes Neck: bruits, jvd, nuchal rigidity Respiratory: clear to auscultation, diminished breath sounds, intercostal retraction, No congested cough, No crackles/rales, No labored breathing, No normal air movement, No other, No respirations, No tactile fremitus, No wheezing Cardiovascular: bruits, jugular venous distention (JVD), systolic murmur Gastrointestinal: nl liver, spleen, soft, No ascites, No bowel sounds, No distended, No firm, No hepatomegaly, No mass , No non-tender, No other, No rebound or guarding, No splenomegaly, No surgical scars, No tender Genitourinary - Male: nl penis, nl scrotum, other (left inguino-scrotal hernia.) Musculoskeletal: joint tenderness, muscle tone, muscle weakness, No nl extremities to inspection, No nl gait and stance, No other, No range of motion, No spine non-tender, No swelling 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, 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, numbness Skin: diaphoresis, No ecchymosis, No laceration, No nl turgor, No other, No puncture, No rash or lesions Results Result Diagram: 08/26/17 0646 08/26/17 0646 Results 24 hrs Laboratory Tests Test 08/26/17 06:46 White Blood Count 8.3 Red Blood Count 4.93 Hemoglobin 14.2 Hematocrit 43.5 Mean Corpuscular Volume 88.2 Mean Corpuscular Hemoglobin 28.8 L Mean Corpuscular Hemoglobin Concent 32.6 Red Cell Distribution Width 13.2 Platelet Count 292 Mean Platelet Volume 10.7 H Neutrophils % 57.4 Lymphocytes % 28.5 Monocytes % 11.4 H Eosinophils % 1.6 Basophils % 0.7 Nucleated Red Blood Cells % 0.0 Neutrophils # 4.8 Lymphocytes # 2.4 Monocytes # 1.0 H Eosinophils # 0.1 Basophils # 0.1 Nucleated Red Blood Cells # 0.0 Sodium Level 140 Potassium Level 3.7 Chloride Level 100 Carbon Dioxide Level 29 Anion Gap 15 Blood Urea Nitrogen 32 H Creatinine 1.74 H Glucose Level 110 # Calcium Level 8.7 Medications Medications Current Medications Albuterol (Ventolin Hfa) 2 puff Q6H PRN INH WHEEZING AND SOB; Start 08/22/17 at 12:00 Gabapentin (Neurontin) 100 mg DAILY PO Last administered on 08/26/17 12:52; Admin Dose 100 MG; Start 08/23/17 at 09:00 Lorazepam (Ativan) 0.5 mg DAILY PRN PO ANXIETY Last administered on 08/23/17 00:53; Admin Dose 0.5 MG; Start 08/22/17 at 11:30 Tamsulosin HCl (Flomax) 0.4 mg HS PO Last administered on 08/26/17 20:06; Admin Dose 0.4 MG; Start 08/22/17 at 21:00 Zolpidem Tartrate (Ambien) 5 mg QHS PRN PO INSOMNIA Last administered on 23:17; Admin Dose 5 MG; Start 08/22/17 at 11:30 Metoprolol Succinate (Toprol Xl) 100 mg DAILY PO Last administered on 09:58; Admin Dose 100 MG; Start 08/23/17 at 09:00; Status Future Hold Nitroglycerin (Nitroglycerin (Sl Tab) 0.4 Mg) 1 tab Q5M PRN SL ANGINA Last administered on 08/22/17 17:30; Admin Dose 1 TAB; Start 08/22/17 at 16:30 Amlodipine Besylate (Norvasc) 5 mg DAILY PO Last administered on 08/26/17 12: 52; Admin Dose 5 MG; Start 08/24/17 at 09:00 Tiotropium [place] (Spiriva) 18 inh DAILY INH Last administered on 08/26/17t 09 :16; Admin Dose 18 INH; Start 08/23/17 at 12:00 Meclizine HCl (Antivert) 12.5 mg Q12H PRN PO DIZZINESS; Start 08/24/17 at 21:30 Pantoprazole (Protonix Tab) 40 mg DAILY@06 PO ; Start 08/27/17 at 06:00 RICHARD ROGERS MD Aug 26, 2017 21:16
--- NOTE | 2017-08-26 21:33 | RADRPT ---
PROCEDURE: US Abdomen and Retroperitoneum. CLINICAL INDICATION: Hyperbilirubinemia. TECHNIQUE: Multiple real-time longitudinal and transverse images were acquired of the patient's ab domen and retroperitoneum utilizing a curved array transducer. COMPARISON: No prior studies are available for comparison. FINDINGS: The liver is normal in size and normal in echogenicity. The liver has a normal smooth surface. Ther e is no focal hepatic lesion. Color Doppler and pulsed Doppler sonography demonstrate normal antegra de flow in the portal vein. The gallbladder is normal with no stones or wall thickening. The bile ducts are normal with the common bile duct measuring 3.6 in mm in diameter. The spleen is normal in size. There is no focal splenic lesion. The pancreas and aorta are not well seen due to overlying bowel gas. There is no free fluid. The right kidney measures 10.6 cm and the left kidney measures 11.0 cm. There is no renal mass. There is no hydronephrosis or calculus. IMPRESSION: 1. Pancreas and abdominal aorta not well seen due to overlying bowel gas. 2. Otherwise normal ultrasound of the abdomen and retroperitoneum. RPTAT: QQ .Pop Parker MD, Date Time Electronically viewed and signed by .Pop Parker MD, on 08/26/2017 21:33 .R/
[2017-08-26] MEDS: ZOLPIDEM 5 MG TAB PO PRN (23:30)
[2017-08-27] VITALS: PULSE 74
[2017-08-27 00:09] VITALS: BP 145/83; RESP 18
[2017-08-27 04:00] VITALS: PULSE 68
[2017-08-27 04:24] VITALS: BP 115/56; RESP 20
[2017-08-27] MEDS ORDERED: PANTOPRAZOLE (EC) 40 MG TAB PO ONE (04:42)
[2017-08-27] MEDS ORDERED: PANTOPRAZOLE (EC) 40 MG TAB PO SCH (06:00)
[2017-08-27] MEDS: FUROSEMIDE 40 MG TAB PO SCH (06:09)
[2017-08-27 06:22] LABS: BASOPHIL # 0.1 10^3/ul (0.0-0.1); BASOPHILS % 0.7 % (0.0-2.0); EOSINOPHILS # 0.2 10^3/ul (0.0-0.5); EOSINOPHILS % 2.5 % (0.0-7.0); HEMATOCRIT 40.7 % (42.0-52.0); HEMOGLOBIN 13.6 g/dl (14.0-18.0); LYMPHOCYTES # 1.7 10^3/ul (0.8-2.9); LYMPHOCYTES % 23.3 % (15.0-51.0); MEAN CORPUSCULAR HEMOGLOBIN 29.6 pg (29.0-33.0); MEAN CORPUSCULAR HGB CONC 33.4 g/dl (32.0-37.0); MEAN CORPUSCULAR VOLUME 88.7 fl (82.0-101.0); MEAN PLATELET VOLUME 10.6 fl (7.4-10.4); MONOCYTE # 0.9 10^3/ul (0.3-0.9); MONOCYTES % 11.9 % (0.0-11.0); NEUTROPHIL # 4.5 10^3/ul (1.6-7.5); NEUTROPHILS % 61.1 % (39.0-77.0); PLATELET COUNT 260 10^3/UL (140-415); RED BLOOD COUNT 4.59 10^6/ul (4.70-6.10); RED CELL DISTRIBUTION WIDTH 13.1 % (11.5-14.5); WHITE BLOOD COUNT 7.3 10^3/ul (4.8-10.8)
[2017-08-27 06:51] LABS: CALCIUM 8.7 mg/dl (8.4-10.2); CREATININE 1.52 mg/dl (0.61-1.24); POTASSIUM 3.8 mmol/L (3.5-5.1)
[2017-08-27 07:27] VITALS: BP 140/71; RESP 20
[2017-08-27 08:04] VITALS: PULSE 74
[2017-08-27] MEDS: AMLODIPINE 5 MG TAB PO SCH (08:11)
[2017-08-27] MEDS: GABAPENTIN 100 MG CAP PO SCH (08:11)
[2017-08-27] MEDS: TIOTROPIUM 18 MCG CAPSULE INHA DEV INH SCH (08:12)
--- NOTE | 2017-08-27 08:49 | PDOCDIS ---
Discharge Instructions CONDITION Patient Condition: Fair HOME CARE INSTRUCTIONS: Diet Instructions: 2gm NaSpecial Diet: Regular ACTIVITY: Activity Restrictions: Slowly Increase Activity FOLLOW UP/APPOINTMENTS Follow-up Plan to in 3-4 days. To in 7 days To In 10 days. SCHOOL/WORK RELEASE May return to School/Work with: With Restrictions (none.) RICHARD ROGERS MD Aug 27, 2017 08:49
--- NOTE | 2017-08-27 08:51 | CONS ---
DATE OF ADMISSION: 08/22/2017 DATE OF CONSULTATION: 08/26/2017 HISTORY OF PRESENT ILLNESS: The patient is an 86-year-old male with multiple medical problems with underlying transient ischemic attack, hypertension, Alzheimer's disease, sleep apnea. MEDICATION: The patient's current medications include: 1. Xarelto 20 mg once a day. 2. Protonix 40 mg once a day. 3. Antivert 12.5 mg once a day. 4. Lexapro 10 mg twice a day. 5. Norvasc 5 mg once a day. 6. Neurontin 100 mg once a day. 7. Flomax 0.4 mg . 8. Albuterol inhaled twice a day. 9. Ativan 0.5 mg as needed. 10. Ambien 5 mg once at night. PAST MEDICAL HISTORY: Hypertension, disease, atrial fibrillation, Alzheimer's disease, obstructive sleep apnea, dyslipidemia, scrotal swelling, electrolyte imbalance. PHYSICAL EXAMINATION: NEUROLOGIC: On exam today, the patient is alert, awake, oriented, following simple commands without difficulty, however does fail to follow second or third step commands. CRANIAL EXAM: Cranial nerve II: Pupils equal on both sides, reactive to light. Cranial nerves II, IV and : Extraocular muscles intact. Cranial nerve V: Equal sensation to face. Cranial nerve VII: Symmetrical face. Cranial nerve VIII: Decreased hearing bilaterally. Cranial nerves IX and X: Elevates palate. Cranial nerve XI: Elevates shoulder 5/5. Cranial nerve XII: With straight tongue. Motor exam: Decreased bilateral hand steel checker 4+/5. Sensation decreased for glove and sock area for light touch and temperature. Coordination: Finger-to- nose test intact. HEART: Regular rate and rhythm. LUNGS: Equal breath sounds. ABDOMEN: Soft, relaxed, nondistended, nontender. IMPRESSION AND PLAN: 1. The patient is 86 years old with underlying transient ischemic attack. We will treat the patient with Xarelto for stroke prophylaxis. 2. Underlying Alzheimer's disease. Start the patient on Namenda 5 mg and will follow up the patient with mini mental test when stable. 3. History of hypertension. We will follow up the patient with Norvasc 5 mg once a day. 4. Insomnia. Give the patient Ambien 5 mg once at night. 5. Suspected sleep apnea. Follow up the patient as an outpatient for more evaluation and treatment with possible sleep study. Again, thank you Dr. Champion for asking me to see the patient with you. Dictated By: Ramon Munoz MD [email or web address] /Document#: [id number]
--- NOTE | 2017-08-27 08:53 | DS ---
Date/Time of Note Date/Time of Note DATE: 08/27/17 TIME: 08:51 Discharge Summary Admission/Discharge Info Admit Date/Time Aug 22, 2017 at 08:22 Discharge Date/Time 08/27/2017 10 am Discharge Diagnosis 1.Acute diastolic CHF exacerbation: elevated BNP,after IV lasix 40 BID to euvolemia 2.IHD Angina; NSTEMI: elevated serial troponins-cardiokly f/u. - Continue aspirin and AC w NOAC 3.A Fib w RVR: onmetoprolol to control rate < 100 - Continue Xarelto for AC 4.TIA with slurred speech(improved) and unstable gate persists. 5.COPD:Stabl 6.Hypertension: more strict controll; Continue amlodipine 7.BPH 8.AD with progressive worsening of memory 9.ALIN with pain 10.Snoring with apnea 11.Incompleate data due to of forgetfulness and with episodes of losing awareness on and off. 12.Dyslipidemia 13.Left scrotal lhtohliy-uuuubee-myohhlc hernia. 14.Lymphocytosis 15.Low magnesium level 16. Acute on chronic renal failure 17.Elevated total bilirubin 1.4 18.Daytime sleepiness. Patient Condition: Fair Hx of Present Illness 86 yo male with h/o permanent A Fib on AC, CAD BPH, OA b/l knees, COPD who presented today with SOB, palpitations accompanied by dizziness and headach this AM. ROS is hoffman positive, a bit difficult to ascertain exactly what brought him to ED, but clearly had a transient episode of SOB and palpitations thsi morning that seems to have resolved. In ED, found to be in A Fib w RVR, given IV and PO metoprolol. Seen by me after these events, feels well. No symptoms currently. Endorses chronic SOB and PND, has very bothersome deviated septum he focuses on. Also has a unilateral swollen testicle and RLE swelling. Hospital Course Assessment 1. Patient admitted with non-STEMI with significant interval improvement. 2. History of hypertension, BPH, obstructive sleep apnea. 3. COPD. Currently stable. 4. Mild pulmonary edema with interval improvement. 5. Chronic renal insufficiency. 6. Chronic atrial fibrillation. Plan 1. Continue cardiac recommendations 2. Encourage ambulation 3. Outpatient pulmonary function testing Stable for discharge from pulmonary standpoint Home Meds Active Scripts Furosemide* (Furosemide*) 20 Mg Tablet, 20 MG PO DAILY for 30 Days, #60 TAB Prov:LEONEL FOWLER MD 05/07/16 Apixaban* (Eliquis*) 5 Mg Tablet, 5 MG PO BID for 30 Days, TAB Prov:LEONEL FOWELR MD 05/07/16 Reported Medications Budesonide-Formoterol Fumarate* (Symbicort*) 160-4.5 Hfa.aer.ad, 2 PUFF INHALATION BID, #1 EACH 05/02/16 Albuterol Sulfate* (Proair HFA*) 8.5 Gm Hfa.aer.ad, 2 PUFF INH Q6H Y for WHEEZING AND SOB, #1 INHALER 05/02/16 Zolpidem Tartrate* (Zolpidem Tartrate*) 5 Mg Tablet, 5 MG PO QHS Y for INSOMNIA , #30 TAB 05/02/16 Theophylline Anhydrous* (Naif-24*) 300 Mg Cap.sr.24h, 300 MG PO DAILY, CAP 05/02/16 Tamsulosin Hcl* (Tamsulosin Hcl*) 0.4 Mg Cap.er.24h, 0.4 MG PO HS, CAP 05/02/16 Tiotropium [facility]* (Spiriva*) 18 Mcg Cap.w.dev, 1 CAP INHALATION DAILY, #30 CAP 05/02/16 Simvastatin* (Zocor*) 40 Mg Tablet, 40 MG PO QHS, #30 TAB 05/02/16 Omeprazole* (Omeprazole*) 40 Mg Capsule.dr, 40 MG PO DAILY, #30 CAP 05/02/16 Metoprolol Succinate* (Toprol XL*) 50 Mg Tab.er.24h, 50 MG PO DAILY, #30 TAB 05/02/16 [place]-3 Acid Ethyl Esters (Lovaza) 1 Gm Capsule, 1 GM PO QID, CAP 05/02/16 Lorazepam* (Lorazepam*) 0.5 Mg Tablet, 0.5 MG PO DAILY Y for ANXIETY, TAB 05/02/16 Gabapentin* (Gabapentin*) 100 Mg Capsule, 100 MG PO DAILY, #90 CAP 05/02/16 Diphenhydramine Hcl* (Benadryl*) 25 Mg Cap, 25 MG PO DAILY Y for ALLERGIC REACTION, CAP 05/02/16 Amlodipine Besylate* (Amlodipine Besylate*) 10 Mg Tablet, 10 MG PO DAILY, #30 TAB 05/02/16 Aspirin (LOW DOSE ASPIRIN EC) 81 Mg Tablet.dr, 81 MG PO DAILY, #30 TAB 05/02/16 Follow-up Plan to in 3-4 days. To in 7 days To In 10 days. Primary Care Provider Richard Champion MD Time spent on discharge: > 30 minutes Pending Labs Laboratory Tests Test 08/27/17 05:51 White Blood Count 7.310^3/ul (4.8-10.8) Red Blood Count 4.5910^6/ul (4.70-6.10) Hemoglobin 13.6g/dl (14.0-18.0) Hematocrit 40.7% (42.0-52.0) Mean Corpuscular Volume 88.7fl (82.0-101.0) Mean Corpuscular Hemoglobin 29.6pg (29.0-33.0) Mean Corpuscular Hemoglobin Concent 33.4g/dl (32.0-37.0) Red Cell Distribution Width 13.1% (11.5-14.5) Platelet Count 10538^3/UL (140-415) Mean Platelet Volume 10.6fl (7.4-10.4) Neutrophils % 61.1% (39.0-77.0) Lymphocytes % 23.3% (15.0-51.0) Monocytes % 11.9% (0.0-11.0) Eosinophils % 2.5% (0.0-7.0) Basophils % 0.7% (0.0-2.0) Nucleated Red Blood Cells % 0.0/100WBC (0.0-0.0) Neutrophils # 4.510^3/ul (1.6-7.5) Lymphocytes # 1.710^3/ul (0.8-2.9) Monocytes # 0.910^3/ul (0.3-0.9) Eosinophils # 0.210^3/ul (0.0-0.5) Basophils # 0.110^3/ul (0.0-0.1) Nucleated Red Blood Cells # 0.010^3/ul (0.0-0.0) Sodium Level 139mmol/L (135-144) Potassium Level 3.8mmol/L (3.5-5.1) Chloride Level 103mmol/L (97-110) Carbon Dioxide Level 27mmol/L (21-31) Anion Gap 13 (8-16) Blood Urea Nitrogen 29mg/dl (7-20) Creatinine 1.52mg/dl (0.61-1.24) Glucose Level 158mg/dl (70-220) Calcium Level 8.7mg/dl (8.4-10.2) RICHARD CHAMPION MD Aug 27, 2017 08:52
--- NOTE | 2017-08-27 10:41 | CONS ---
Date/Time of Note Date/Time of Note DATE: 08/27/17 TIME: 10:40 Consult Date/Type/Reason Admit Date/Time Aug 22, 2017 at 08:22 Initial Consult Date 08/25/17 Type of Consultation: Pulmonary Ordering Provider: BLANK RUTH MD Subjective Comfortable this morning. No new events. Denies shortness of breath sitting up in chair. Objective Vital Signs Date Time Temp Pulse Resp B/P Pulse Ox O2 Delivery O2 Flow Rate FiO2 08/27/17 08:04 74 08/27/17 07:27 98.3 20 140/71 95 08/23/17 21:30 Nasal Cannula 2.0 Intake and Output 08/26/17 08/26/17 08/27/17 15:00 23:00 07:00 Intake Total 400 ml 500 ml Output Total 600 ml Balance 400 ml -100 ml Exam GENERAL: VITAL SIGNS: per chart NECK: Supple. No JVD or lymphadenopathy. CARDIAC EXAM: S1, S2. No added sounds or murmurs. CHEST: clear bilaterally, No added sounds, rales or wheezes ABDOMEN: Soft, nontender. No guarding or rebound. EXTREMITIES: No cyanosis, clubbing or edema. NEUROLOGIC: Generalized weakness. No focal deficits. Results/Medications Result Diagram: 08/27/17 0551 08/27/17 0551 Results 24 hrs Laboratory Tests Test 08/27/17 05:51 White Blood Count 7.3 Red Blood Count 4.59 L Hemoglobin 13.6 L Hematocrit 40.7 L Mean Corpuscular Volume 88.7 Mean Corpuscular Hemoglobin 29.6 Mean Corpuscular Hemoglobin Concent 33.4 Red Cell Distribution Width 13.1 Platelet Count 260 Mean Platelet Volume 10.6 H Neutrophils % 61.1 Lymphocytes % 23.3 Monocytes % 11.9 H Eosinophils % 2.5 Basophils % 0.7 Nucleated Red Blood Cells % 0.0 Neutrophils # 4.5 Lymphocytes # 1.7 Monocytes # 0.9 Eosinophils # 0.2 Basophils # 0.1 Nucleated Red Blood Cells # 0.0 Sodium Level 139 Potassium Level 3.8 Chloride Level 103 Carbon Dioxide Level 27 Anion Gap 13 Blood Urea Nitrogen 29 H Creatinine 1.52 H Glucose Level 158 Calcium Level 8.7 Medications Current Medications Albuterol (Ventolin Hfa) 2 puff Q6H PRN INH WHEEZING AND SOB; Start 08/22/17 at 12:00 Gabapentin (Neurontin) 100 mg DAILY PO Last administered on 08/27/17 08:11; Admin Dose 100 MG; Start 08/23/17 at 09:00 Lorazepam (Ativan) 0.5 mg DAILY PRN PO ANXIETY Last administered on 08/23/17 00:53; Admin Dose 0.5 MG; Start 08/22/17 at 11:30 Tamsulosin HCl (Flomax) 0.4 mg HS PO Last administered on 08/26/17 20:06; Admin Dose 0.4 MG; Start 08/22/17 at 21:00 Zolpidem Tartrate (Ambien) 5 mg QHS PRN PO INSOMNIA Last administered on 23:30; Admin Dose 5 MG; Start 08/22/17 at 11:30 Metoprolol Succinate (Toprol Xl) 100 mg DAILY PO Last administered on 09:58; Admin Dose 100 MG; Start 08/23/17 at 09:00; Status Future Hold Nitroglycerin (Nitroglycerin (Sl Tab) 0.4 Mg) 1 tab Q5M PRN SL ANGINA Last administered on 08/22/17 17:30; Admin Dose 1 TAB; Start 08/22/17 at 16:30 Amlodipine Besylate (Norvasc) 5 mg DAILY PO Last administered on 08/27/17 08: 11; Admin Dose 5 MG; Start 08/24/17 at 09:00 Tiotropium [place] (Spiriva) 18 inh DAILY INH Last administered on 08/27/17 08 :12; Admin Dose 18 INH; Start 08/23/17 at 12:00 Meclizine HCl (Antivert) 12.5 mg Q12H PRN PO DIZZINESS; Start 08/24/17 at 21:30 Pantoprazole (Protonix Tab) 40 mg DAILY@06 PO Last administered on 08/27/17 06 :09; Admin Dose 40 MG; Start 08/27/17 at 06:00 Assessment/Plan Chief Complaint/Hosp Course Assessment 1. Patient admitted with non-STEMI with significant interval improvement. 2. History of hypertension, BPH, obstructive sleep apnea. 3. COPD. Currently stable. 4. Mild pulmonary edema with interval improvement. 5. Chronic renal insufficiency. 6. Chronic atrial fibrillation. Plan 1. Continue cardiac recommendations 2. Encourage ambulation 3. Outpatient pulmonary function testing Discharge planning. Will follow-up in office. Problems: KARINA DEL RIO MD, [facility] Aug 27, 2017 10:41
--- NOTE | 2017-08-30 07:16 | CONS ---
DATE OF SERVICE: HISTORY OF PRESENT ILLNESS: The patient is an 86-year-old with underlying transient ischemic attack. The patient's put him on medication for prophylaxis of a stroke, underlying dementia Alzheimer's, insomnia. The patient has improvement. His medications include Xarelto 20 mg once a day, Protonix 40 mg once a day, Antivert 12.5 mg once a day, Lexapro 10 mg twice a day, Norvasc 5 mg once a day, Neurontin 100 mg once a day, Flomax 0.4 mg once a day, albuterol inhaler twice a day, Ativan 0.5 mg as needed, Ambien 5 mg once at night as needed. PHYSICAL EXAMINATION: GENERAL: The patient is awake, alert, follows simple commands. NEUROLOGIC: CRANIAL NERVES: Cranial nerve II: Pupils equal on both sides, reactive to light. Cranial nerves III, IV and : Extraocular muscles intact. Cranial nerve V: Equal sensation to face. Cranial nerve VII: Symmetrical face. Cranial nerve VIII: Decreased hearing bilaterally. Cranial nerves IX and X: Elevates palate. Cranial nerve XI: Elevates shoulder 5/5. Cranial nerve XII: With straight tongue. 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 Sensation for light touch and temperature. Coordination: Finger to nose testing intact. HEART: Regular rate and rhythm. ABDOMEN: Soft, nondistended, nontender. ASSESSMENT AND PLAN: 1. The patient is an 86-year-old with underlying transient ischemic attack. Patient is on Xarelto. 2. Underlying dementia, Alzheimer's disease. Start the patient on Namenda 5 mg once a day. For observation of mini mental status treatment. 3. History of hypertension. Will adjust his medications to get his blood pressure 40/90 and follow observation in an outpatient clinic. 4. Insomnia. Will put on Ambien 5 mg for suspected underlying sleep apnea. Follow up patient's sleep study. Again, thank you, , for asking me to see the patient with you. Dictated By: Ramon Munoz MD /[email or web address] /Document#: [id number]
== END 2017-08-27 11:10 | disposition home health service (06) | DRG 280 ==
LOC: E/R 06:36 → TEL 08:22 → ICU 21:15 → TEL 08-23 21:45
PROVIDERS: ADMIT Family Medicine; ATTEND Family Medicine
DX: I21.4 Non-ST elevation (NSTEMI) myocardial infarction (principal); I50.33 Acute on chronic diastolic (congestive) heart failure; N17.9 Acute kidney failure, unspecified; G45.9 Transient cerebral ischemic attack, unspecified; I13.0 Hypertensive heart and chronic kidney disease with heart failure and stage 1 through stage 4 chronic kidney disease, or unspecified chronic kidney disease; I48.2 Chronic atrial fibrillation; I25.10 Atherosclerotic heart disease of native coronary artery without angina pectoris; I11.0 Hypertensive heart disease with heart failure; J44.9 Chronic obstructive pulmonary disease, unspecified; N40.0 Benign prostatic hyperplasia without lower urinary tract symptoms; E78.5 Hyperlipidemia, unspecified; M17.0 Bilateral primary osteoarthritis of knee; I12.9 Hypertensive chronic kidney disease with stage 1 through stage 4 chronic kidney disease, or unspecified chronic kidney disease; N18.9 Chronic kidney disease, unspecified; G47.33 Obstructive sleep apnea (adult) (pediatric); G30.9 Alzheimer's disease, unspecified; F02.80 Dementia in other diseases classified elsewhere, unspecified severity, without behavioral disturbance, psychotic disturbance, mood disturbance, and anxiety; E83.42 Hypomagnesemia; D72.820 Lymphocytosis (symptomatic); Z79.02 Long term (current) use of antithrombotics/antiplatelets; Z79.82 Long term (current) use of aspirin; Z96.1 Presence of intraocular lens; Z98.42 Cataract extraction status, left eye; Z95.5 Presence of coronary angioplasty implant and graft; Z86.73 Personal history of transient ischemic attack (TIA), and cerebral infarction without residual deficits; Z87.891 Personal history of nicotine dependence; Z79.01 Long term (current) use of anticoagulants
CPT/HCPCS: 36415; 70450; 70544; 70549; 70551; 71010; 76700; 80048; 80053; 82270; 82550; 82553; 82962; 83735; 83880; 84100; 84443; 84484; 85025; 85610; 85730; 93005; 93306; 96374; 96375; 97116; 97162; 97530; C9113; J1650; J1940; J2250; J3475

== ENCOUNTER 2017-12-19 17:28 | Inpatient (IN) | END 2017-12-22 14:12 | disposition home or self-care (01) | DRG 281 ==

== ENCOUNTER 2019-06-28 23:33 | Inpatient (IN) | payer MEDICARE, OTHER ==
[~2019-06-28] VITALS: Ht 165.1 cm; Wt 75.0 kg
[~2019-06-28 23:33] MED LIST changes: -ALBU8.5H3 INH; +AMIT10TA6 PO; +ASPI-817 PO; -ASPI81TA16 PO; +ASPI81TA52 PO; +CYAN500T46 PO; +DIPH25CA6 PO; +EZET10TA31 PO; +FINA5TAB4 PO; -FURO20TA3 PO; +FURO40TA4 PO; +ICOS1CAP PO; +LISI-313 PO; +TAMS-14 PO
[2019-06-28] MEDS ORDERED: DILTIAZEM-D5W 125MG/125ML DRIP 125 ML IV STA (23:46)
[2019-06-28] MEDS ORDERED: DILTIAZEM 25 MG INJ IV STA (23:46)
[2019-06-29] MEDS ORDERED: SOD CHLORIDE 0.9% 100 ML ONE (00:52)
[2019-06-29] MEDS ORDERED: IOHEXOL 300MG/ML 150 ML BTL ONE (00:52)
--- NOTE | 2019-06-29 02:01 | ERD ---
ER Documentation Chief Complaint Chief Complaint bib ra from home for cp, and left sided arm pain HPI This is an 88-year-old male with a past medical history of hypertension, hyperlipidemia, coronary artery disease status post stenting, atrial fibrillation, a recent diagnosis of left DVT on Eliquis, now presenting with palpitations and chest pain. The patient describes the chest pain as constant, pressure-like, aching and sore, left-sided radiating into the left arm with associated shortness of breath and nausea. His symptoms began 1 to 2 hours prior to arrival and would not remit. He has not had any vomiting. He does not endorse lightheadedness or dizziness. He does not endorse diaphoresis. The family does not endorse any alleviating or exacerbating factors. The family called an ambulance to transport the patient to the emergency department. The patient was given full dose aspirin and nitroglycerin prior to arrival. The patient is now pain-free. The patient was reportedly tachycardic with an irregularly irregular rhythm in route to the hospital. The patient denies feeling sick recently. The patient denies fever or chills. The patient has had no headache or vision changes. The patient does not endorse neck or back pain. The patient denies abdominal pain. The patient denies changes to bowel movements or urination. The patient has had no focal deficits. The patient has had no weakness or numbness or tingling to the face or extremities. ROS All systems reviewed and are negative except as per history of present illness. Medications Home Meds Reported Medications Ezetimibe* (Zetia*) 10 Mg Tablet, 10 MG PO HS, TAB 12/19/17 Finasteride* (Finasteride*) 5 Mg Tablet, 5 MG PO DAILY, TAB 12/19/17 Lisinopril* (Lisinopril*) 5 Mg Tablet, 5 MG PO DAILY, #30 TAB 12/19/17 Zolpidem Tartrate* (Zolpidem Tartrate*) 5 Mg Tablet, 5 MG PO QHS PRN for INSOMNIA, #30 TAB 12/19/17 Tiotropium [place]* (Spiriva*) 18 Mcg Cap.w.dev, 1 CAP INHALATION DAILY, #30 CAP 12/19/17 Theophylline Anhydrous* (Naif-24*) 300 Mg Cap.sr.24h, 300 MG PO DAILY, CAP 12/19/17 Tamsulosin Hcl* (Tamsulosin Hcl*) 0.4 Mg Cap.er.24h, 0.4 MG PO HS, CAP 12/19/17 Simvastatin* (Zocor*) 40 Mg Tablet, 40 MG PO QHS, #30 TAB 12/19/17 Omeprazole* (Omeprazole*) 40 Mg Capsule.dr, 40 MG PO DAILY, #30 CAP 12/19/17 [place]-3 Acid Ethyl Esters (Lovaza) 1 Gm Capsule, 1 GM PO QID, CAP 12/19/17 Metoprolol Succinate* (Toprol XL*) 50 Mg Tab.er.24h, 50 MG PO DAILY, #30 TAB 12/19/17 Lorazepam* (Lorazepam*) 0.5 Mg Tablet, 0.5 MG PO DAILY PRN for ANXIETY, TAB 12/19/17 Gabapentin* (Gabapentin*) 100 Mg Capsule, 100 MG PO DAILY, #90 CAP 12/19/17 Furosemide* (Furosemide*) 40 Mg Tablet, 40 MG PO DAILY, TAB 12/19/17 Aspirin (Low Dose Aspirin) 81 Mg Tablet.dr, 81 MG PO DAILY, #30 TAB 12/19/17 Diphenhydramine Hcl* (Diphenhydramine Hcl*) 25 Mg Capsule, 25 MG PO DAILY PRN for ALLERGIC REACTION, CAP 12/19/17 Budesonide-Formoterol Fumarate* (Symbicort*) 160-4.5 Hfa.aer.ad, 2 PUFF INHALATION BID, #1 EACH 12/19/17 Apixaban* (Eliquis*) 5 Mg Tablet, 5 MG PO BID, TAB 12/19/17 Amlodipine Besylate* (Amlodipine Besylate*) 10 Mg Tablet, 10 MG PO DAILY, #30 TAB 12/19/17 Allergies Allergies: Coded Allergies: Influenza Virus Vaccines (Unverified Allergy, Unknown, 12/19/17) Penicillins (Verified Allergy, Unknown, hives, 12/19/17) acetaminophen (Verified Allergy, Unknown, 12/19/17) hives, swelling clopidogrel (Verified Allergy, Unknown, 12/19/17) PMhx/Soc History of Surgery: Yes (KNEE SURG,HEART STENT) Anesthesia Reaction: No Hx Neurological Disorder: No Hx Respiratory Disorders: Yes (COPD) Hx Cardiac Disorders: Yes (CAD, AFIB, STENT) Hx Psychiatric Problems: No Hx Miscellaneous Medical Probl: No Hx Alcohol Use: Yes (OCCASIONAL) Hx Substance Use: No Hx Tobacco Use: No FmHx Family History: No diabetes Physical Exam Vitals Vital Signs Date Temp Pulse Resp B/P (MAP) Pulse Ox O2 O2 Flow FiO2 Time Delivery Rate 06/28/19 98.2 146 22 148/82 93 23:37 (104) 06/28/19 142 20 140/89 98 Room Air 23:35 (106) Physical Exam Const: No apparent distress, well-developed, well-nourished Head: Normocephalic, Atraumatic Eyes: Normal Conjunctiva. Extraocular movements intact. Pupils equal, round and reactive to light ENT: Normal External Ears, Nose and Mouth. Neck: Full range of motion. No meningismus. Resp: Clear to auscultation bilaterally, No wheezes, rales or rhonchi Cardio: Tachycardia. Irregularly irregular rhythm. No murmurs, rubs or gallops Abd: Soft, non tender, non distended. Normal bowel sounds Skin: No petechiae or rashes Back: No midline tenderness. No CVA tenderness Ext: No cyanosis. 1+ pitting left lower extremity edema. Neur: Awake and alert. Cranial nerves intact. No facial droop. Normal strength, sensation and coordination. Psych: Normal Mood and Affect Result Diagram: 06/28/19233906/28/192339 Results 24 hrs Laboratory Tests Test 06/28/19 23:40 White Blood Count 8.4 10^3/ul Red Blood Count 4.98 10^6/ul Hemoglobin 14.2 g/dl Hematocrit 43.0 % Mean Corpuscular Volume 86.3 fl Mean Corpuscular Hemoglobin 28.5 pg Mean Corpuscular Hemoglobin Concent 33.0 g/dl Red Cell Distribution Width 13.2 % Platelet Count 298 10^3/UL Mean Platelet Volume 10.2 fl Immature Granulocytes % 0.400 % Neutrophils % 68.1 % Lymphocytes % 19.9 % Monocytes % 9.2 % Eosinophils % 1.8 % Basophils % 0.6 % Nucleated Red Blood Cells % 0.0 /100WBC Immature Granulocytes # 0.030 10^3/ul Neutrophils # 5.7 10^3/ul Lymphocytes # 1.7 10^3/ul Monocytes # 0.8 10^3/ul Eosinophils # 0.2 10^3/ul Basophils # 0.1 10^3/ul Nucleated Red Blood Cells # 0.0 10^3/ul Prothrombin Time 16.4 Sec Prothrombin Time Ratio 1.3 INR International Normalized Ratio 1.31 Activated Partial Thromboplast Time 39.7 Sec Sodium Level 142 mmol/L Potassium Level 4.2 mmol/L Chloride Level 110 mmol/L Carbon Dioxide Level 22 mmol/L Anion Gap 10 Blood Urea Nitrogen 17 mg/dl Creatinine 1.30 mg/dl Est Glomerular Filtrat Rate mL/min mL/min Glucose Level 152 mg/dl Calcium Level 9.1 mg/dl Troponin I < 0.012 ng/ml B-Type Natriuretic Peptide 1500 PG/ML Current Medications Medications Dose Sig/Katy Start Time Status Last (Trade) Ordered Route PRN Stop Time Admin Dose Reason Admin Diltiazem 15 mg ONCE STAT 06/28/19 DC 06/28/19 HCl IV 23:46 23:52 (Cardizem Iv) 06/28/19 23:49 Diltiazem 125 ml @ 5 ONCE STAT 06/28/19 06/29/19 HCl mls/hr IV 23:46 06/30/19 00:12 00:45 Sodium 100 ml @ ud STK-MED 06/29/19 DC 06/29/19 Chloride ONCE .ROUTE 00:52 06/29/19 01:14 00:53 Iohexol 150 ml STK-MED 06/29/19 DC 06/29/19 (Omnipaque ONCE .ROUTE 00:52 06/29/19 01:14 300mg/ ml) 00:53 Procedures/MDM MDM The patient's presentation warrants further investigation. Previous medical records, if available, were reviewed. LABS The patient's laboratory testing was obtained and reviewed. No emergent treatment was required unless described below. CBC: No E/o systemic infection or severe anemia or thrombocytopenia Chemistry: No E/o severe acidosis or alkalosis or renal failure or diabetic ketoacidosis PT/INR: Slightly elevated INR in the setting of Eliquis use. Troponin: No E/o acute ischemia BNP: Elevated, likely demand ischemia, low clinical suspicion for an acute heart failure exacerbation. EKG EKG read by me: Rate/Rhythm: Irregularly irregular rhythm, tachycardia at 128 bpm Intervals: Normal QRS and QTc. No P waves present. [place]: Normal Impression: No evidence of acute ischemia or arrhythmia IMAGING Imaging and Radiology interpretation reviewed. CXR FINDINGS: Normal cardiac and mediastinal configuration. Aortic calcified plaque present. No CHF or hilar enlargement. Decreased aeration at both lung bases due to atelectasis. No significant pleural effusion identified. IMPRESSION: Bibasilar subsegmental atelectasis. Electronically viewed and signed by Physician Gisell on 06/29/2019 00:14 CTA Chest FINDINGS: There is mild enlargement of the central pulmonary arteries consistent with pulmonary artery hypertension. The pulmonary arteries are otherwise normal with no filling defect or lack of enhancement to suggest pulmonary artery embolism. Emphysematous changes are present bilaterally in the upper lung zones consistent with centrilobular emphysema. The lungs are otherwise clear. There is no pulmonary airspace or interstitial disease. There is no pulmonary nodule or mass lesion. There is no pneumothorax. There is no mediastinal or hilar lymphadenopathy or mass. There is no pleural effusion. There is no pericardial effusion. There is calcification in the aorta consistent with atherosclerosis. The thoracic aorta is otherwise normal with no aneurysm or dissection. The heart is mildly enlarged. Images through the upper abdomen demonstrate normal visualized portions of the liver, spleen, and adrenals. There is flowing ossification along the anterolateral aspect of 10 contiguous lower thoracic vertebral bodies, with preservation of disk height consistent with diffuse idiopathic skeletal hyperostosis (DISH). There is no fracture or lytic lesion. IMPRESSION: 1. Pulmonary artery hypertension. 2. Otherwise normal CT pulmonary angiogram with no evidence of pulmonary artery embolism. 3. Centrilobular emphysema. 4. Atherosclerosis. 5. Mild cardiomegaly. 6. Diffuse idiopathic skeletal hyperostosis. 7. Otherwise unremarkable study. Electronically viewed and signed by Pop Parker MD, MD on 06/29/2019 01:37 TREATMENT/DISPOSITION The patient presents in atrial fibrillation with rapid ventricular response. The patient's heart rate jumped anywhere from 120-150 when he first arrived. The patient does have a history of atrial fibrillation, and I do suspect an exacerbated episode. The patient was treated with a bolus of Cardizem and a subsequent infusion with improvement of his heart rate to less than 110. He is still in atrial fibrillation, but he does appear to be rate controlled at this time. We are no longer titrating the Cardizem drip. The patient also endorsed symptoms concerning for cardiac ischemia. While the patient's EKG does reveal atrial fibrillation with RVR, I do not see evidence of cardiac ischemia and the patient's troponin is negative. I have decreased suspicion for acute coronary syndrome at this time. Demand ischemia is c ertainly a possibility given his rapid heart rate. The patient was already treated with aspirin and nitroglycerin prior to arrival. I did not re-dose him in the emergency department. The patient's BNP was elevated, but there is no evidence of acute heart failure. I suspect this to be chronic and/or related to demand ischemia from his rapid heart rate. The patient's chest xray does not reveal pneumonia or pneumothorax or pleural effusions or pulmonary edema. The patient does not have a widened mediastinum and does not have signs or symptoms concerning for thoracic aortic aneurysm or dissection. The patient does not have pneumomediastinum or signs concerning for esophageal tear or rupture. The patient has no clinical or radiographic signs of pericardial effusion or tamponade. The patient does not have pneumoperitoneum and I have decreased suspicion of viscus perforation as possible referred pain. The patient does not have a diagnosis of COPD and is not wheezing today. Given the patient's tachycardia and history of DVT, I was concerned about the possibility of a pulmonary embolism despite being on Eliquis. A CTA was performed that was fortunately unremarkable. ADMISSION At this time, I feel that the patient requires admission for further evaluation and management. The patient will be admitted to Dr. Champion in accordance with the patient's insurance. The patient was accepted to telemetry at 2 AM on June 29, 2019. CRITICAL CARE NOTE Time: 34 minutes excluding all billable procedures. Treatments/Evaluations: The patient was at risk of hemodynamic compromise. Ti evi of critical care involved close serial monitoring, evaluation of the patient's medical record including previous records & current laboratory/imaging studies, potential interventions for prevention of hemodynamic/ cardiopulmonary/ neurologic compromise, maintaining tight fluid balance, and any discussions with the family and/or consultants regarding the patient's status and prognosis. DISCLAIMER Inadvertent spelling and grammatical errors are likely due to EHR/dictation software use and do not reflect on the overall quality of patient care. Note that the electronic time recorded on this note does not necessarily reflect the actual time of the patient encounter. Departure Diagnosis: Primary Impression: Atrial fibrillation with RVR Additional Impressions: Chest pain Chest pain type: unspecified Qualified Codes: R07.9 - Chest pain, unspecified Elevated brain natriuretic peptide (BNP) level Demand ischemia Condition: Serious BOB STUBBS MD Jun 29, 2019 01:38
[2019-06-29] MEDS ORDERED: ONDANSETRON 4 MG INJ IV PRN (02:30)
--- NOTE | 2019-06-29 11:53 | HP ---
Date/Time of Note Date/Time of Note DATE: 06/29/19 TIME: 11:42 Assessment/Plan VTE Prophylaxis SCD contraindicated: other (on) Pharmacological prophylaxis: LMWH Lines/Catheters IV Catheter Type (from Nrsg): [place] line still needed: No Urinary Cath still in place: No Reason Cath still needed: urinary retention Assessment/Plan Assessment/Plan 1.IHD Angina; elevated serial troponins-cardiology f/u- called. - Continue aspirin and AC w NOACA 2.atrial fibrillation fib, paroxysmal, documented previous episodes .status post DC shock . Almost always was RVR: On and off on Cardizem and metoprolol; I degree AVB on 66 bpm now;controlled.Will get ekg from er. Not in a chart yet. - Continue Xarelto for ANDRES with the Hx of acute diastolic CHF exacerbation 5 months ago: elevated BNP,after IV lasix 40 BID to euvolemia 3.PVC's more frequently; Admits of noncompliance to meds and diet(eat chash with significant amount of salt) 4.Dizziness and unstable gate persists. 5.COPD:Stable 6.Hypertension: more strict control; Continue amlodipine 7.BPH 8.AD with progressive worsening of memory 9.ALIN with pain 10.Snoring with apnea 11.Incomplete data due to of forgetfulness and with episodes of losing awareness on and off. 12.Dyslipidemia 13.Left scrotal swelling 14.Lymphocytosis 15.Low magnesium level-recheck 16. Acute on chronic renal failure 17.Elevated total bilirubin 1.4 in previous admission now 1.2 18.Daytime sleepiness. 19.S/p bilateral knee replacement with good results. 20. Left leg pain mainly in the calf region. Self treatment by putting a bandage for 3 days after which pain subsided. Today the occurrence of the pain. No association with the physical movements. Result Diagram: 06/28/19 2340 06/28/19 2340 Results 24hrs Laboratory Tests Test 06/28/19 23:40 06/29/19 05:19 06/29/19 11:10 White Blood Count 8.4 Red Blood Count 4.98 Hemoglobin 14.2 Hematocrit 43.0 Mean Corpuscular Volume 86.3 Mean Corpuscular Hemoglobin 28.5 L Mean Corpuscular Hemoglobin Concent 33.0 Red Cell Distribution Width 13.2 Platelet Count 298 Mean Platelet Volume 10.2 Immature Granulocytes % 0.400 Neutrophils % 68.1 Lymphocytes % 19.9 Monocytes % 9.2 Eosinophils % 1.8 Basophils % 0.6 Nucleated Red Blood Cells % 0.0 Immature Granulocytes # 0.030 Neutrophils # 5.7 Lymphocytes # 1.7 Monocytes # 0.8 Eosinophils # 0.2 Basophils # 0.1 Nucleated Red Blood Cells # 0.0 Prothrombin Time 16.4 H Prothrombin Time Ratio 1.3 INR International Normalized Ratio 1.31 Activated Partial Thromboplast Time 39.7 H Sodium Level 142 Potassium Level 4.2 Chloride Level 110 Carbon Dioxide Level 22 Anion Gap 10 Blood Urea Nitrogen 17 Creatinine 1.30 H Est Glomerular Filtrat Rate mL/min Glucose Level 152 Calcium Level 9.1 Troponin I < 0.012 0.081 Pending B-Type Natriuretic Peptide 1500 H Creatine Kinase 57 58 Creatine Kinase Index 2.8 Pending Creatinine Kinase MB (Mass) 1.62 Pending HPI/ROS Admit Date/Time Admit Date/Time Hx of Present Illness Chest pain with pressure sensation mid chest area in intensity 09/07 started yesterday causing significant discomfort with respiration no shortness of rona th. Refused hospitalization initially when the pain subsided. When it recurred the patient agreed to come to the hospital and paramedics were called. First sets of cardiac enzymes and troponins were positive. At the time of my evaluation in the emergency room patient has no chest pain. ROS Constitutional: improved, fatigue, nausea, poor po, other (The patient did notice that he had eaten too much in the evening. He has been having a very good appetite. He felt distention of epigastric region after full dinner. According to him that was the reason of provoking pressure sensation of the chest.); No no complaints, No chills, No diaphoresis, No disoriented, No febrile, No weight change ENT: congestion; No no complaints, No bleeding, No pain, No discharge, No dysphagia, No sore throat, No other Respiratory: cough, shortness of breath; No no complaints, No pain, No pleuritic pain, No sputum, No wheezing, No other Cardiovascular: chest pain, lightheadedness, orthopenea, palpitations; No no complaints, No edema, No paroxysmal nocturnal dyspnea, No other Gastrointestinal: pain, constipation, flatus, nausea; No no complaints, No blood, No decreased appetite, No diarrhea, No passing stool, No vomiting, No other Genitourinary: dysuria, flank pain; No no complaints, No bleeding, No discharge, No hematuria, No other Musculoskeletal: back pain, bone/joint pain Skin: pruritis, rash; No no complaints, No bruising, No erythema, No laceration, No skin lesions, No other Neurologic: confusion; No no complaints, No dizziness, No focal-weakness, No headache, No syncope, No seizure, No other Endocrine: dry skin; No no complaints, No polyuria, No polydypsia, No temp intolerance, No weight change, No other Psychological: anxiety; No no complaints, No nl mood/affect, No confusion, No depression, No suicidal, No other Immunologic: No no complaints, No immunodeficiency, No pruritis, No rhinitis, No urticaria, No other PMH/Family/Social Past Medical History Medical History: angina, congestive heart failure, coronary artery disease, GERD, high cholesterol, irritable bowel syndrome, renal disease, urinary tract infection Medications Current Medications Diltiazem HCl 125 ml @ 5 mls/hr ONCE STAT IV Last administered on 06/29/19at 00:12; Admin Dose 5 MLS/HR; Start 06/28/19 at 23:46; Stop 06/30/19 at 00:45 Ondansetron HCl (Zofran Inj) 4 mg ER BRIDGE PRN IV NAUSEA/VOMITING; Start 06/29/19 at 02:30; Stop 06/30/19 at 02:29 Coded Allergies: Influenza Virus Vaccines (Unverified Allergy, Unknown, 06/29/19) Penicillins (Unverified Allergy, Unknown, hives, 06/29/19) acetaminophen (Unverified Allergy, Unknown, 06/29/19) hives, swelling clopidogrel (Unverified Allergy, Unknown, 06/29/19) Past Surgical History Past Surgical Hx: angioplasty, other (Status post bilateral knee replacement and cataract ectomy) Family History Significant Family History: heart disease, COPD, hypertension Social History Alcohol Use: none Smoking Status: Never smoker Drug Use: none Exam/Review of Systems Vital Signs Vitals Vital Signs Date Temp Pulse Resp B/P (MAP) Pulse Ox O2 O2 Flow FiO2 Time Delivery Rate 06/29/19 66 18 135/72 96 Room Air 11:12 (93) 06/28/19 98.2 23:37 Exam Constitutional: alert, oriented, well developed, distress, frail; No non-verbal, No other Psych: anxiety, confusion; No no complaints, No nl mood/affect, No depression, No suicidal, No other Head: normocephalic, atraumatic (On and off); No lacerations, No hematomas, No other Eyes: EOMI (Status post cataract ectomy surgery.), nl lids, PERRL; No nl conjunctiva, No nl sclera, No icteric, No fundi, disc, No other ENMT: No nl external ears & nose, No nl lips & teeth, No nl nasal mucosa & septum, No mucosa pink and moist, No intubated, No tympanic membranes, No other Neck: jvd, bruits, thyromegaly, nuchal rigidity; No supple, No non-tender, No masses, No other Respiratory: normal air movement, crackles/rales, diminished breath sounds; No clear to auscultation, No congested cough, No intercostal retraction, No labored breathing, No respirations, No tactile fremitus, No wheezing, No other Cardiovascular: regular rate and rhythm, bruits, jugular venous distention (JVD ), systolic murmur; No nl pulses, No diastolic murmur, No edema, No gallop, No irregular rhythm, No murmurs/extra sounds, No rub, No S3, No S4, No other Gastrointestinal: soft, nl liver, spleen, non-tender, bowel sounds; No ascites, No distended, No firm, No hepatomegaly, No mass, No rebound or guarding, No splenomegaly, No surgical scars, No tender, No other Genitourinary - Male: nl penis, nl scrotum; No CVA tenderness, No discharge, No other Musculoskeletal: nl extremities to inspection, joint tenderness (Status post bilateral knee replacement well-healed surgical scars.), muscle tone, muscle weakness, range of motion; No nl gait and stance, No spine non-tender, No swelling, No other Extremities: normal pulses; No calf tenderness, No cyanosis, No clubbing, No edema, No pitting pedal edema, No palpable cord, No tenderness, No other 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
[2019-06-29] MEDS ORDERED: AMLODIPINE 10 MG TAB PO SCH (12:00)
[2019-06-29] MEDS ORDERED: LORAZEPAM 0.5 MG TAB PO PRN (12:00)
[2019-06-29] MEDS ORDERED: ASPIRIN (EC) 81 MG TAB PO SCH (12:00)
[2019-06-29] MEDS ORDERED: METOPROLOL (XL) 50 MG TAB PO PRN (12:00)
[2019-06-29] MEDS ORDERED: AMITRIPTYLINE 10 MG TAB PO PRN (12:00)
[2019-06-29] MEDS ORDERED: ZOLPIDEM 5 MG TAB PO PRN (12:00)
[2019-06-29] MEDS ORDERED: DIPHENHYDRAMINE 25 MG CAP PO PRN (12:00)
--- NOTE | 2019-06-29 14:25 | CONS ---
Assessment/Plan Assessment/Plan Hospital Course (Demo Recall) Paroxysmal atrial fibrillation: On Eliquis. 12/16 hospitalized for RVR and plan was for amiodarone for rhythm control. As he had been in sinus off of amio,it was not started. However as he had recurrence, it is a good strategy. Chest pain: due to above. Trops within range. Likely has CAD but since he is generally frail, has no symptoms except when he is in atrial fibrillation, and this is not ACS, best to avoid further workup. PAD with h/o left popliteal occlusion: 05/2018 in setting of stopping Eliquis. May have been cardioembolic. S/p local TPA and balloon angioplasty. Likely recurrent event 06/16 and now occlusion of AT but no limb ischemia. CAD: Stent early Chronic diastolic CHF: EF preserved 05/2019. Euvolemic off Lasix Mild aortic stenosis: as seen on echo 06/16 AAA: Last CT 06/16 4.5cm in maximal diameter HTN HL CKD: baseline Cr 1.2 -start amiodarone 200mg BID, eventually daily as outpt -continue Eliquis 5mg BID -d/c ASA -lisinopril 5mg -takes metoprolol 50mg as needed at home. For now hold to see if HR will tolerate amiodarone Consultation Date/Type/Reason Admit Date/Time Date of Consultation: Jun 29, 2019 Type of Consult Cardiology Reason for Consultation Chest pain, afib Requesting Provider: RICHARD ROGERS MD Date/Time of Note DATE: 06/29/19 TIME: 14:04 Hx of Present Illness 88 yo M well known to me with a h/o paroxysmal atrial fibrillation on Eliquis, CAD s/p PCI early , chronic diastolic CHF, PAD with thromboembolic occlusion of his popliteal 06/15 s/p intervention, AAA (4.6cm CT 06/16), HTN, mild CKD (Cr 1.2), mild , who presented with sudden onset palpitations and chest pain which occurred last night, In the ER he was found to have afib with RVR with rates as high as 180s per his daughter. He was also started on a diltiazem drip. He eventually converted to sinus this am. He had a chest CTA which was unremarkable. Trops negative x 3. No further symptoms. In general he is active and asymptomatic including no chest pain with exertion. per hPI Past Medical History per hPI Home Meds Reported Medications Cyanocobalamin* (Vitamin B12*) 500 Mcg Tab, 500 MCG PO DAILY, TAB 06/29/19 Aspirin* (Aspirin* EC) 81 Mg Tablet.dr, 81 MG PO Q7D, TAB 06/29/19 Diphenhydramine Hcl* (Benadryl*) 25 Mg Cap, 25 MG PO NEEDED PRN for ITCHING, CAP 06/29/19 Zolpidem Tartrate* (Zolpidem Tartrate*) 5 Mg Tablet, 5 MG PO QHS PRN for INSO MNIA, #30 TAB 06/29/19 Tamsulosin Hcl* (Flomax*) 0.4 Mg Cap.er.24h, 0.4 MG PO HS, CAP 06/29/19 Metoprolol Succinate* (Toprol XL*) 50 Mg Tab.er.24h, 50 MG PO DAILY PRN for NEEDED, #30 TAB 06/29/19 Apixaban* (Eliquis*) 5 Mg Tablet, 5 MG PO BID, TAB 06/29/19 Icosapent Ethyl (VASCEPA) 1 Gm Capsule, 1 GM PO QID, CAP 06/29/19 Budesonide-Formoterol Fumarate* (Symbicort*) 160-4.5 Hfa.aer.ad, 2 PUFF INH ALATION BID PRN for NEEDED, #1 EACH 06/29/19 Amitriptyline Hcl* (Amitriptyline Hcl*) 10 Mg Tablet, 10 MG PO QHS PRN for NEEDED, #30 TAB 06/29/19 Finasteride* (Finasteride*) 5 Mg Tablet, 5 MG PO DAILY, TAB 06/29/19 Gabapentin* (Gabapentin*) 100 Mg Capsule, 100 MG PO DAILY, #90 CAP NEEDED 06/29/19 Amlodipine Besylate* (Amlodipine Besylate*) 10 Mg Tablet, 10 MG PO DAILY, #30 TAB 06/29/19 Simvastatin* (Zocor*) 40 Mg Tablet, 40 MG PO QHS, #30 TAB 06/29/19 Lorazepam* (Lorazepam*) 0.5 Mg Tablet, 0.5 MG PO HS PRN for ANXIETY, TAB 06/29/19 Lisinopril* (Lisinopril*) 5 Mg Tablet, 5 MG PO DAILY, #30 TAB 06/29/19 Discontinued Reported Medications Ezetimibe* (Zetia*) 10 Mg Tablet, 10 MG PO HS, TAB 12/19/17 Finasteride* (Finasteride*) 5 Mg Tablet, 5 MG PO DAILY, TAB 12/19/17 Lisinopril* (Lisinopril*) 5 Mg Tablet, 5 MG PO DAILY, #30 TAB 12/19/17 Zolpidem Tartrate* (Zolpidem Tartrate*) 5 Mg Tablet, 5 MG PO QHS PRN for INSOMNIA, #30 TAB 12/19/17 Tiotropium [place]* (Spiriva*) 18 Mcg Cap.w.dev, 1 CAP INHALATION DAILY, #30 CAP 12/19/17 Theophylline Anhydrous* (Naif-24*) 300 Mg Cap.sr.24h, 300 MG PO DAILY, CAP 12/19/17 Tamsulosin Hcl* (Tamsulosin Hcl*) 0.4 Mg Cap.er.24h, 0.4 MG PO HS, CAP 12/19/17 Simvastatin* (Zocor*) 40 Mg Tablet, 40 MG PO QHS, #30 TAB 12/19/17 Omeprazole* (Omeprazole*) 40 Mg Capsule.dr, 40 MG PO DAILY, #30 CAP 12/19/17 [place]-3 Acid Ethyl Esters (Lovaza) 1 Gm Capsule, 1 GM PO QID, CAP 12/19/17 Metoprolol Succinate* (Toprol XL*) 50 Mg Tab.er.24h, 50 MG PO DAILY, #30 TAB 12/19/17 Lorazepam* (Lorazepam*) 0.5 Mg Tablet, 0.5 MG PO DAILY PRN for ANXIETY, TAB 12/19/17 Gabapentin* (Gabapentin*) 100 Mg Capsule, 100 MG PO DAILY, #90 CAP 12/19/17 Furosemide* (Furosemide*) 40 Mg Tablet, 40 MG PO DAILY, TAB 12/19/17 Aspirin (Low Dose Aspirin) 81 Mg Tablet.dr, 81 MG PO DAILY, #30 TAB 12/19/17 Diphenhydramine Hcl* (Diphenhydramine Hcl*) 25 Mg Capsule, 25 MG PO DAILY PRN for ALLERGIC REACTION, CAP 12/19/17 Budesonide-Formoterol Fumarate* (Symbicort*) 160-4.5 Hfa.aer.ad, 2 PUFF INHALATION BID, #1 EACH 12/19/17 Apixaban* (Eliquis*) 5 Mg Tablet, 5 MG PO BID, TAB 12/19/17 Amlodipine Besylate* (Amlodipine Besylate*) 10 Mg Tablet, 10 MG PO DAILY, #30 TAB 12/19/17 Medications Current Medications Diltiazem HCl 125 ml @ 5 mls/hr ONCE STAT IV Last administered on 06/29/19at 00:12; Admin Dose 5 MLS/HR; Start 06/28/19 at 23:46; Stop 06/30/19 at 00:45 Ondansetron HCl (Zofran Inj) 4 mg ER BRIDGE PRN IV NAUSEA/VOMITING; Start 06/29/19 at 02:30; Stop 06/30/19 at 02:29 Amitriptyline HCl (Elavil) 10 mg QHS PRN PO NEEDED; Start 06/29/19 at 12:00; Status UNV Amlodipine Besylate (Norvasc) 10 mg DAILY PO ; Start 06/29/19 at 12:00 Aspirin (Halfprin) 81 mg Q7D PO ; Start 06/29/19 at 12:00 Cyanocobalamin (Vitamin B12) 500 mcg DAILY PO ; Start 06/29/19 at 12:00 Diphenhydramine HCl (Benadryl) 25 mg Q8 PRN PO ITCHING; Start 06/29/19 at 12:00 Finasteride (Proscar) 5 mg DAILY PO ; Start 06/29/19 at 12:00 Gabapentin (Neurontin) 100 mg DAILY PO ; Start 06/29/19 at 12:00 Lisinopril (Zestril) 5 mg DAILY PO ; Start 06/29/19 at 12:00 Lorazepam (Ativan) 0.5 mg HS PRN PO ANXIETY; Start 06/29/19 at 12:00 Metoprolol Succinate (Toprol Xl) 50 mg DAILY PRN PO NEEDED; Start 06/29/19 at 12:00 Tamsulosin HCl (Flomax) 0.4 mg HS PO ; Start 06/29/19 at 21:00 Zolpidem Tartrate (Ambien) 5 mg QHS PRN PO INSOMNIA; Start 06/29/19 at 12:00 Miscellaneous Information 2 puff BID PRN INHALATION NEEDED; Start 06/29/19 at 12:00; Status UNV Miscellaneous Information 1 gm QID PO ; Start 06/29/19 at 13:00; Status UNV Atorvastatin Calcium (Lipitor) 20 mg DAILY@21 PO ; Start 06/29/19 at 21:00 Allergies: Coded Allergies: Influenza Virus Vaccines (Unverified Allergy, Unknown, 06/29/19) Penicillins (Unverified Allergy, Unknown, hives, 06/29/19) acetaminophen (Unverified Allergy, Unknown, 06/29/19) hives, swelling clopidogrel (Unverified Allergy, Unknown, 06/29/19) Past Surgical History Past Surgical Hx: angioplasty, other (Status post bilateral knee replacement and cataract ectomy) Social History Alcohol Use: none Smoking Status: Never smoker Drug Use: none Exam/Review of Systems Vital Signs Vitals Vital Signs Date Temp Pulse Resp B/P (MAP) Pulse Ox O2 O2 Flow FiO2 Time Delivery Rate 06/29/19 60 18 101/85 95 Room Air 13:02 (90) 06/28/19 98.2 23:37 Exam Constitutional: alert, oriented Psych: no complaints, nl mood/affect Head: normocephalic, atraumatic Neck: supple; No jvd Respiratory: clear to auscultation; No crackles/rales Cardiovascular: regular rate and rhythm, systolic murmur (3/6 mid peaking LAVINIA); No edema Gastrointestinal: soft, non-tender; No distended Neurological: nl mental status, nl speech Labs Result Diagram: 06/28/19 2340 06/28/19 2340 Results 24hrs Laboratory Tests Test 06/28/19 23:40 06/29/19 05:19 06/29/19 11:10 White Blood Count 8.4 Red Blood Count 4.98 Hemoglobin 14.2 Hematocrit 43.0 Mean Corpuscular Volume 86.3 Mean Corpuscular Hemoglobin 28.5 L Mean Corpuscular Hemoglobin Concent 33.0 Red Cell Distribution Width 13.2 Platelet Count 298 Mean Platelet Volume 10.2 Immature Granulocytes % 0.400 Neutrophils % 68.1 Lymphocytes % 19.9 Monocytes % 9.2 Eosinophils % 1.8 Basophils % 0.6 Nucleated Red Blood Cells % 0.0 Immature Granulocytes # 0.030 Neutrophils # 5.7 Lymphocytes # 1.7 Monocytes # 0.8 Eosinophils # 0.2 Basophils # 0.1 Nucleated Red Blood Cells # 0.0 Prothrombin Time 16.4 H Prothrombin Time Ratio 1.3 INR International Normalized Ratio 1.31 Activated Partial Thromboplast Time 39.7 H Sodium Level 142 Potassium Level 4.2 Chloride Level 110 Carbon Dioxide Level 22 Anion Gap 10 Blood Urea Nitrogen 17 Creatinine 1.30 H Est Glomerular Filtrat Rate mL/min Glucose Level 152 Calcium Level 9.1 Troponin I < 0.012 0.081 0.057 B-Type Natriuretic Peptide 1500 H Creatine Kinase 57 58 Creatine Kinase Index 2.8 2.8 Creatinine Kinase MB (Mass) 1.62 1.65 Medications Medications Current Medications Diltiazem HCl 125 ml @ 5 mls/hr ONCE STAT IV Last administered on 06/29/19at 00:12; Admin Dose 5 MLS/HR; Start 06/28/19 at 23:46; Stop 06/30/19 at 00:45 Ondansetron HCl (Zofran Inj) 4 mg ER BRIDGE PRN IV NAUSEA/VOMITING; Start 06/29/19 at 02:30; Stop 06/30/19 at 02:29 Amitriptyline HCl (Elavil) 10 mg QHS PRN PO NEEDED; Start 06/29/19 at 12:00; Status UNV Amlodipine Besylate (Norvasc) 10 mg DAILY PO ; Start 06/29/19 at 12:00 Aspirin (Halfprin) 81 mg Q7D PO ; Start 06/29/19 at 12:00 Cyanocobalamin (Vitamin B12) 500 mcg DAILY PO ; Start 06/29/19 at 12:00 Diphenhydramine HCl (Benadryl) 25 mg Q8 PRN PO ITCHING; Start 06/29/19 at 12:00 Finasteride (Proscar) 5 mg DAILY PO ; Start 06/29/19 at 12:00 Gabapentin (Neurontin) 100 mg DAILY PO ; Start 06/29/19 at 12:00 Lisinopril (Zestril) 5 mg DAILY PO ; Start 06/29/19 at 12:00 Lorazepam (Ativan) 0.5 mg HS PRN PO ANXIETY; Start 06/29/19 at 12:00 Metoprolol Succinate (Toprol Xl) 50 mg DAILY PRN PO NEEDED; Start 06/29/19 at 12:00 Tamsulosin HCl (Flomax) 0.4 mg HS PO ; Start 06/29/19 at 21:00 Zolpidem Tartrate (Ambien) 5 mg QHS PRN PO INSOMNIA; Start 06/29/19 at 12:00 Miscellaneous Information 2 puff BID PRN INHALATION NEEDED; Start 06/29/19 at 12:00; Status UNV Miscellaneous Information 1 gm QID PO ; Start 06/29/19 at 13:00; Status UNV Atorvastatin Calcium (Lipitor) 20 mg DAILY@21 PO ; Start 06/29/19 at 21:00 MADINA RODRIGUEZ Jun 29, 2019 14:16
[2019-06-29] MEDS: APIXABAN 5 MG TABLET PO SCH ×2 (14:49→22:52)
[2019-06-29] MEDS: CYANOCOBALAMIN 500 MCG TAB PO SCH (14:50)
[2019-06-29] MEDS: LISINOPRIL 5 MG TAB PO SCH (14:50)
[2019-06-29] MEDS: FINASTERIDE 5 MG TAB PO SCH (14:51)
[2019-06-29] MEDS: AMIODARONE 200 MG TAB PO SCH ×2 (14:51→22:52)
[2019-06-29] MEDS: GABAPENTIN 100 MG CAP PO SCH (14:51)
[2019-06-29] MEDS ORDERED: AMLODIPINE 5 MG TAB PO ONE (16:00)
[2019-06-29 16:06] VITALS: Ht 165.1 cm; Wt 75.0 kg
[2019-06-29 20:40] VITALS: BP 118/69; PULSE 72; RESP 19
[2019-06-29] MEDS ORDERED: ATORVASTATIN 20 MG TAB PO SCH (21:00)
[2019-06-29] MEDS ORDERED: NON-FORMULARY/PATIENT OWN MED (Simvastatin* (Zocor*) 40 MG) PO SCH (21:00)
[2019-06-29] MEDS ORDERED: TAMSULOSIN (SR) 0.4 MG CAP PO SCH (21:00)
[2019-06-29] MEDS: ARFORMOTEROL TARTRATE 15MCG/2 ML AMP HHN SCH (21:57)
[2019-06-29] MEDS: BUDESONIDE (NEB) 0.5MG/2ML AMP HHN SCH (21:57)
[2019-06-29 22:48] VITALS: BP 124/75; PULSE 78
[2019-06-30 00:46] VITALS: BP 147/84; PULSE 68; RESP 20
[2019-06-30 04:37] VITALS: BP 143/67; PULSE 67; RESP 18
[2019-06-30 07:38] VITALS: BP 148/69; PULSE 64; RESP 16
[2019-06-30 07:41] VITALS: BP 140/67
[2019-06-30] MEDS: AMIODARONE 200 MG TAB PO SCH (08:19)
[2019-06-30] MEDS: GABAPENTIN 100 MG CAP PO SCH (08:19)
[2019-06-30] MEDS: LISINOPRIL 5 MG TAB PO SCH (08:19)
[2019-06-30] MEDS: FINASTERIDE 5 MG TAB PO SCH (08:19)
[2019-06-30] MEDS: APIXABAN 5 MG TABLET PO SCH (08:20)
[2019-06-30] MEDS: CYANOCOBALAMIN 500 MCG TAB PO SCH (08:20)
--- NOTE | 2019-06-30 08:55 | PDOCDIS ---
Discharge Instructions DIAGNOSIS Discharge Diagnosis 1.IHD Angina; elevated serial troponins-cardiology f/u- called. - Continue aspirin and AC w NOACA 2.atrial fibrillation fib, paroxysmal, documented previous episodes .status post DC shock . Almost always was RVR: On and off on Cardizem and metoprolol; I degree AVB on 66 bpm now;controlled.Will get ekg from er. Plan to other Cordarone. - Continue Xarelto for ANDRES with the Hx of acute diastolic CHF exacerbation 5 months ago: elevated BNP,after IV lasix 40 BID to euvolemia 3.PVC's more frequently; Admits of noncompliance to meds and diet(eat chash with significant amount of salt) 4.Dizziness and unstable gate persists. 5.COPD:Stable 6.Hypertension: more strict control; Continue amlodipine 7.BPH 8.AD with progressive worsening of memory 9.ALIN with pain 10.Snoring with apnea 11.Incomplete data due to of forgetfulness and with episodes of losing awareness on and off. 12.Dyslipidemia 13.Left scrotal swelling 14.Lymphocytosis 15.Low magnesium level-recheck 16. Acute on chronic renal failure 17.Elevated total bilirubin 1.4 in previous admission now 1.2 18.Daytime sleepiness. 19.S/p bilateral knee replacement with good results. 20. Left leg pain mainly in the calf region. Self treatment by putting a bandage for 3 days after which pain subsided. Today the occurrence of the pain. No association with the physical movements. 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 SCHOOL/WORK RELEASE May return to School/Work with: RICHARD Santoro MD Jun 30, 2019 08:55
--- NOTE | 2019-06-30 08:59 | DS ---
Date/Time of Note Date/Time of Note DATE: 06/30/19 TIME: 08:57 Discharge Summary Admission/Discharge Info Admit Date/Time Jun 29, 2019 at 02:01 Discharge Date/Time June 30, 2019 at 11 AM. Discharge Diagnosis 1.IHD Angina; elevated serial troponins-cardiology f/u- called. - Continue aspirin and AC w NOACA 2.atrial fibrillation fib, paroxysmal, documented previous episodes .status post DC shock . Almost always was RVR: On and off on Cardizem and metoprolol; I degree AVB on 66 bpm now;controlled.Will get ekg from er. Plan to other Cordarone. - Continue Xarelto for ANDRES with the Hx of acute diastolic CHF exacerbation 5 months ago: elevated BNP,after IV lasix 40 BID to euvolemia 3.PVC's more frequently; Admits of noncompliance to meds and diet(eat chash with significant amount of salt) 4.Dizziness and unstable gate persists. 5.COPD:Stable 6.Hypertension: more strict control; Continue amlodipine 7.BPH 8.AD with progressive worsening of memory 9.ALIN with pain 10.Snoring with apnea 11.Incomplete data due to of forgetfulness and with episodes of losing awareness on and off. 12.Dyslipidemia 13.Left scrotal swelling 14.Lymphocytosis 15.Low magnesium level-recheck 16. Acute on chronic renal failure 17.Elevated total bilirubin 1.4 in previous admission now 1.2 18.Daytime sleepiness. 19.S/p bilateral knee replacement with good results. 20. Left leg pain mainly in the calf region. Self treatment by putting a bandage for 3 days after which pain subsided. Today the occurrence of the pain. No association with the physical movements. Patient Condition: Guarded Hx of Present Illness Chest pain with pressure sensation mid chest area in intensity 10/10 started yesterday causing significant discomfort with respiration no shortness of breath. Refused hospitalization initially when the pain subsided. When it recurred the patient agreed to come to the hospital and paramedics were called. First sets of cardiac enzymes and troponins were positive. At the time of my evaluation in the emergency room patient has no chest pain. Hospital Course The patient came with signs of angina along with the irregular heartbeats and tachycardia with dizziness making him very short of breath with the chest pain and tachycardic. Now patient is asymptomatic heart rate is controlled blood pressure is better controlled we will continue monitor as an outpatient. Home Meds Reported Medications Cyanocobalamin* (Vitamin B12*) 500 Mcg Tab, 500 MCG PO DAILY, TAB 06/29/19 Aspirin* (Aspirin* EC) 81 Mg Tablet.dr, 81 MG PO Q7D, TAB 06/29/19 Diphenhydramine Hcl* (Benadryl*) 25 Mg Cap, 25 MG PO NEEDED PRN for ITCHING, CAP 06/29/19 Zolpidem Tartrate* (Zolpidem Tartrate*) 5 Mg Tablet, 5 MG PO QHS PRN for INSOMNIA, #30 TAB 06/29/19 Tamsulosin Hcl* (Flomax*) 0.4 Mg Cap.er.24h, 0.4 MG PO HS, CAP 06/29/19 Metoprolol Succinate* (Toprol XL*) 50 Mg Tab.er.24h, 50 MG PO DAILY PRN for NEEDED, #30 TAB 06/29/19 Apixaban* (Eliquis*) 5 Mg Tablet, 5 MG PO BID, TAB 06/29/19 Icosapent Ethyl (VASCEPA) 1 Gm Capsule, 1 GM PO QID, CAP 06/29/19 Budesonide-Formoterol Fumarate* (Symbicort*) 160-4.5 Hfa.aer.ad, 2 PUFF INHALATION BID PRN for NEEDED, #1 EACH 06/29/19 Amitriptyline Hcl* (Amitriptyline Hcl*) 10 Mg Tablet, 10 MG PO QHS PRN for N EEDED, #30 TAB 06/29/19 Finasteride* (Finasteride*) 5 Mg Tablet, 5 MG PO DAILY, TAB 06/29/19 Gabapentin* (Gabapentin*) 100 Mg Capsule, 100 MG PO DAILY, #90 CAP NEEDED 06/29/19 Amlodipine Besylate* (Amlodipine Besylate*) 10 Mg Tablet, 10 MG PO DAILY, #30 TAB 06/29/19 Simvastatin* (Zocor*) 40 Mg Tablet, 40 MG PO QHS, #30 TAB 06/29/19 Lorazepam* (Lorazepam*) 0.5 Mg Tablet, 0.5 MG PO HS PRN for ANXIETY, TAB 06/29/19 Lisinopril* (Lisinopril*) 5 Mg Tablet, 5 MG PO DAILY, #30 TAB 06/29/19 Discontinued Reported Medications Ezetimibe* (Zetia*) 10 Mg Tablet, 10 MG PO HS, TAB 12/19/17 Finasteride* (Finasteride*) 5 Mg Tablet, 5 MG PO DAILY, TAB 12/19/17 Lisinopril* (Lisinopril*) 5 Mg Tablet, 5 MG PO DAILY, #30 TAB 12/19/17 Zolpidem Tartrate* (Zolpidem Tartrate*) 5 Mg Tablet, 5 MG PO QHS PRN for INSOMNIA, #30 TAB 12/19/17 Tiotropium Glidden* (Spiriva*) 18 Mcg Cap.w.dev, 1 CAP INHALATION DAILY, #30 CAP 12/19/17 Theophylline Anhydrous* (Naif-24*) 300 Mg Cap.sr.24h, 300 MG PO DAILY, CAP 12/19/17 Tamsulosin Hcl* (Tamsulosin Hcl*) 0.4 Mg Cap.er.24h, 0.4 MG PO HS, CAP 12/19/17 Simvastatin* (Zocor*) 40 Mg Tablet, 40 MG PO QHS, #30 TAB 12/19/17 Omeprazole* (Omeprazole*) 40 Mg Capsule.dr, 40 MG PO DAILY, #30 CAP 12/19/17 [place]-3 Acid Ethyl Esters (Lovaza) 1 Gm Capsule, 1 GM PO QID, CAP 12/19/17 Metoprolol Succinate* (Toprol XL*) 50 Mg Tab.er.24h, 50 MG PO DAILY, #30 TAB 12/19/17 Lorazepam* (Lorazepam*) 0.5 Mg Tablet, 0.5 MG PO DAILY PRN for ANXIETY, TAB 12/19/17 Gabapentin* (Gabapentin*) 100 Mg Capsule, 100 MG PO DAILY, #90 CAP 12/19/17 Furosemide* (Furosemide*) 40 Mg Tablet, 40 MG PO DAILY, TAB 12/19/17 Aspirin (Low Dose Aspirin) 81 Mg Tablet.dr, 81 MG PO DAILY, #30 TAB 12/19/17 Diphenhydramine Hcl* (Diphenhydramine Hcl*) 25 Mg Capsule, 25 MG PO DAILY PRN for ALLERGIC REACTION, CAP 12/19/17 Budesonide-Formoterol Fumarate* (Symbicort*) 160-4.5 Hfa.aer.ad, 2 PUFF INHALATION BID, #1 EACH 12/19/17 Apixaban* (Eliquis*) 5 Mg Tablet, 5 MG PO BID, TAB 12/19/17 Amlodipine Besylate* (Amlodipine Besylate*) 10 Mg Tablet, 10 MG PO DAILY, #30 TAB 12/19/17 Follow-up Plan In 5 days to primary care physician in 5days; in 7 days to protection consultant. Primary Care Provider Richard Rogers MD Time spent on discharge: > 30 minutes Pending Labs Laboratory Tests Test 06/29/19 11:10 Creatine Kinase 58 IU/L (23-200) Creatine Kinase Index 2.8 Creatinine Kinase MB (Mass) 1.65 ng/ml (0.0-2.4) Troponin I 0.057 ng/ml (0.000-0.120) RICHARD ROGERS MD Jun 30, 2019 08:59
[2019-06-30] MEDS ORDERED: FISH OIL 1,000 MG CAP PO SCH (09:00)
[2019-06-30] MEDS ORDERED: AMLODIPINE 5 MG TAB PO SCH (09:00)
--- NOTE | 2019-06-30 09:01 | CONS ---
Assessment/Plan Assessment/Plan Hospital Course (Demo Recall) Paroxysmal atrial fibrillation: On Eliquis. 12/16 hospitalized for RVR and plan was for amiodarone for rhythm control. As he had been in sinus off of amio,it was not started. However as he had recurrence, it is a good strategy. Remains in sinus Chest pain: due to above. Trops within range. Likely has CAD but since he is generally frail, has no symptoms except when he is in atrial fibrillation, and this is not ACS, best to avoid further workup. If recurrence when not in atrial fibrillation or if elevated troponins in the future, will pursue further workup PAD with h/o left popliteal occlusion: 05/2018 in setting of stopping Eliquis. May have been cardioembolic. S/p local TPA and balloon angioplasty. Likely recurrent event 06/16 and now occlusion of AT but no limb ischemia. CAD: Stent early Chronic diastolic CHF: EF preserved 05/2019. Euvolemic off Lasix Mild aortic stenosis: as seen on echo 06/16 AAA: Last CT 06/16 4.5cm in maximal diameter HTN HL CKD: baseline Cr 1.2 -ok for d/c home -I will order amiodarone 200mg BID as outpt, eventually daily after one month when I see him in the office -continue Eliquis 5mg BID -lisinopril 5mg -amlodipine 5mg -for now holding metoprolol as bradycardic at times and rhythm control is being used anyway Consultation Date/Type/Reason Admit Date/Time Jun 29, 2019 at 02:01 Initial Consult Date 06/29/19 Type of Consult Cardiology Requesting Provider: RICHARD ROGERS MD Date/Time of Note DATE: 06/30/19 TIME: 08:58 24 HR Interval Summary Free Text/Dictation Remains in sinus. No chest pain or palpitations. Ambulated without symptoms. Would like to go home. Exam/Review of Systems Vital Signs Vitals Vital Signs Date Temp Pulse Resp B/P (MAP) Pulse Ox O2 O2 Flow FiO2 Time Delivery Rate 06/30/19 140/67 07:41 (91) 06/30/19 97.5 64 16 92 Room Air 07:38 06/29/19 21 22:00 Intake and Output 06/29/19 06/29/19 06/30/19 1515:00 23:00 07:00 IntakeIntake Total 250 ml BalanceBalance 250 ml Exam Constitutional: alert, oriented Psych: no complaints, nl mood/affect Head: normocephalic, atraumatic Neck: No jvd Respiratory: clear to auscultation; No crackles/rales Cardiovascular: regular rate and rhythm, systolic murmur (3/6 LAVINIA); No edema Gastrointestinal: soft, non-tender; No distended Neurological: nl mental status, nl speech Labs Result Diagram: 06/28/19 2340 06/28/19 2340 Results 24hrs Laboratory Tests Test 06/29/19 11:10 Creatine Kinase 58 Creatine Kinase Index 2.8 Creatinine Kinase MB (Mass) 1.65 Troponin I 0.057 Medications Medications Current Medications Amitriptyline HCl (Elavil) 10 mg QHS PRN PO NEEDED; Start 06/29/19 at 12:00; Status UNV Cyanocobalamin (Vitamin B12) 500 mcg DAILY PO Last administered on 06/30/19at 08:20; Admin Dose 500 MCG; Start 06/29/19 at 12:00 Diphenhydramine HCl (Benadryl) 25 mg Q8 PRN PO ITCHING; Start 06/29/19 at 12:00 Finasteride (Proscar) 5 mg DAILY PO Last administered on 06/30/19at 08:19; Admin Dose 5 MG; Start 06/29/19 at 12:00 Gabapentin (Neurontin) 100 mg DAILY PO Last administered on 06/30/19at 08:19; Admin Dose 100 MG; Start 06/29/19 at 12:00 Lisinopril (Zestril) 5 mg DAILY PO Last administered on 06/30/19at 08:19; Admin Dose 5 MG; Start 06/29/19 at 12:00 Lorazepam (Ativan) 0.5 mg HS PRN PO ANXIETY Last administered on 06/29/19at 23:26; Admin Dose 0.5 MG; Start 06/29/19 at 12:00 Tamsulosin HCl (Flomax) 0.4 mg HS PO Last administered on 06/29/19at 21:37; Admin Dose 0.4 MG; Start 06/29/19 at 21:00 Zolpidem Tartrate (Ambien) 5 mg QHS PRN PO INSOMNIA; Start 06/29/19 at 12:00 Arformoterol Tartrate (Brovana (Neb)) 2 ml BID RESP THERAPY HHN Last administered on 06/29/19 21:57; Admin Dose 2 ML; Start 06/29/19 at 20:00 Fish Oil (Fish Oil) 1,000 mg QID PO Last administered on 06/30/19 08:19; Admin Dose 1,000 MG; Start 06/30/19 at 09:00 Atorvastatin Calcium (Lipitor) 20 mg DAILY@21 PO Last administered on 06/29/19at 21:37; Admin Dose 20 MG; Start 06/29/19 at 21:00 Amiodarone HCl (Cordarone) 200 mg BID PO Last administered on 06/30/19 08:19; Admin Dose 200 MG; Start 06/29/19 at 14:30 Apixaban (Eliquis) 5 mg BID PO Last administered on 06/30/19 08:20; Admin Dose 5 MG; Start 06/29/19 at 14:30 Budesonide (Pulmicort (Neb)) 0.5 mg BID RESP THERAPY HHN Last administered on 06/29/19at 21:57; Admin Dose 0.5 MG; Start 06/29/19 at 20:00 Amlodipine Besylate (Norvasc) 5 mg DAILY PO Last administered on 06/30/19 08:20; Admin Dose 5 MG; Start 06/30/19 at 09:00 Miscellaneous Information (*Order Clarification Bulletin) MEDICATION REQUIRES CLARIFICATI... Q8H XX ; Start 06/30/19 at 09:00 MADINA RODRIGUEZ Jun 30, 2019 09:01
[2019-06-30] MEDS: ARFORMOTEROL TARTRATE 15MCG/2 ML AMP HHN SCH (10:27)
[2019-06-30] MEDS: BUDESONIDE (NEB) 0.5MG/2ML AMP HHN SCH (10:27)
[2019-06-30 11:51] VITALS: BP 169/73; PULSE 69; RESP 18
== END 2019-06-30 12:45 | disposition home or self-care (01) | DRG 309 ==
LOC: E/R 23:33 → 6WM 06-29 02:01
PROVIDERS: ADMIT Family Medicine; ATTEND Family Medicine
DX: I48.91 Unspecified atrial fibrillation (principal); I50.32 Chronic diastolic (congestive) heart failure; I13.0 Hypertensive heart and chronic kidney disease with heart failure and stage 1 through stage 4 chronic kidney disease, or unspecified chronic kidney disease; I25.119 Atherosclerotic heart disease of native coronary artery with unspecified angina pectoris; Z79.02 Long term (current) use of antithrombotics/antiplatelets; K21.9 Gastro-esophageal reflux disease without esophagitis; N18.2 Chronic kidney disease, stage 2 (mild)
CPT/HCPCS: 36415; 71045; 71275; 80048; 82550; 82553; 83880; 84484; 85025; 85610; 85730; 93005; 94640; 94664; 96374; 96375; Q9967